=== PATIENT | female | born 1960 | race Caucasian/White ===

== ENCOUNTER 2017-12-08 13:28 | Inpatient (IN) ==
--- NOTE | 2017-12-08 15:07 | Emergency Department Note ---
Disposition Clinical Impression: Venous thrombosis Disposition: Admitted As Inpatient Condition: Fair General Adult HPI - General Chief complaint: ED Back Pain/Injury Stated complaint: Lower Back Pain x 4 days Time Seen by Provider: 12/08/17 14:18 Source: EMS - History of Present Illness Pain Scale: 10 - Related Data Home Medications Medication Instructions Recorded Confirmed Furosemide [Lasix] 40 mg PO DAILY 06/14/15 12/08/17 Insulin Glargine [Lantus] 40 unit SQ BID 06/03/16 12/08/17 Rivaroxaban [Xarelto] 20 mg PO DAILY 06/03/16 12/08/17 Ibuprofen [Ibuprofen] 800 mg PO BID 12/08/17 12/08/17 Lisinopril [Zestril] 20 mg PO DAILY 12/08/17 12/08/17 Previous Rx's Medication Instructions Recorded Albuterol Sulfate [Albuterol 2 puff IH Q6HR PRN #1 hfa.aer.ad 04/09/17 Inhaler] Tramadol HCl [Ultram] 50 mg PO QID PRN 4 Days #10 tab 12/05/17 Allergies Allergy/AdvReac Type Severity Reaction Status Date / Time No Known Allergies Allergy Verified 12/08/17 13:44 Past Medical History - Past Medical History Medical history: Reports: arthritis, asthma, COPD, CVA, DVT, diabetes, GERD, hyperlipidemia, hypertension, osteoporosis, other Surgical history: Reports: , cholecystectomy, other ([place] filter) Psychiatric history: Reports: anxiety, depression FRAME WIRER history: Reports: no FRAME WIRER history - Social History Smoking Status: Never smoker Smokeless Tobacco Status: No Alcohol use: Reports: none Drug use: Reports: none Physical Exam - General General appearance: alert, in no apparent distress Course Vital Signs Temperature 97.8 F 12/08/17 13:41 Pulse Rate 100 12/08/17 13:41 Respiratory Rate 16 12/08/17 13:41 Blood Pressure 133/79 12/08/17 13:41 O2 Sat by Pulse Oximetry 97 12/08/17 13:41 Temperature 97.8 F 12/08/17 13:41 Pulse Rate 105 12/08/17 18:15 Respiratory Rate 16 12/08/17 18:15 Blood Pressure 135/61 12/08/17 18:15 O2 Sat by Pulse Oximetry 94 12/08/17 18:15 Oxygen Delivery Oxygen Delivery Nasal Cannula Medical Decision Making - Lab Data Result diagrams: 12/08/17 17:25 12/08/17 15:27 Lab Results 12/08/17 12/08/17 12/08/17 Range/Units 15:27 15:27 17:25 WBC 11.5 H 11.2 H (4.3-11.1) K/mcL RBC 3.89 4.03 (3.82-4.97) M/mcL Hgb 11.6 12.1 (11.5-15.4) g/dL Hct 35.8 36.9 (35.3-44.9) % MCV 92.0 91.6 (83.0-100.0) fL MCH 29.8 30.0 (28.0-33.3) pg MCHC 32.4 32.8 (31.6-35.5) g/dL RDW 12.8 12.7 (11.5-14.5) % Plt Count 176 182 (140-400) K/mcL MPV 10.6 10.8 (9.4-12.4) fL Immature Gran % 0.4 (0-4) % Seg Neutrophils % 80.7 % Lymphocytes % 11.6 % Monocytes % 5.5 % Eosinophils % 1.4 % Basophils % 0.4 % Neutrophils # 9.2 H (1.6-8.9) K/mcL Lymphocytes # 1.3 (0.6-4.6) K/mcL Monocytes # 0.6 (0.0-1.3) K/mcL Eosinophils # 0.2 (0.0-0.6) K/mcL Basophils # 0.1 (0.0-0.2) K/mcL PT (9.4-12.1) Seconds INR APTT (26.0-36.0) Seconds Sodium 131 L (136-145) mEq/L Potassium 3.3 L (3.5-5.1) mEq/L Chloride 93 L (98-107) mEq/L Carbon Dioxide 31 H (23-29) mEq/L BUN 20 (6-20) mg/dL Creatinine 0.75 (0.60-1.20) mg/dL Est GFR ( Amer) > 60 (> 60) Est GFR (Non-Af Amer) > 60 (> 60) BUN/Creatinine Ratio 27 H (6-26) Glucose 428 H (70-105) mg/dL Calculated Osmolality 293 (280-300) Calcium 9.2 (8.6-10.3) mg/dL Total Bilirubin 1.1 H (0.3-1.0) mg/dL AST 8 L (13-39) Units/L ALT 10 (7-52) Units/L Alkaline Phosphatase 108 H (34-104) Units/L Serum Total Protein 7.2 (6.4-8.9) g/dL Albumin 3.9 (3.5-5.7) g/dL Globulin 3.3 (2.4-3.5) g/dL Albumin/Globulin Ratio 1.2 (1.1-2.2) 12/08/17 Range/Units 17:25 WBC (4.3-11.1) K/mcL RBC (3.82-4.97) M/mcL Hgb (11.5-15.4) g/dL Hct (35.3-44.9) % MCV (83.0-100.0) fL MCH (28.0-33.3) pg MCHC (31.6-35.5) g/dL RDW (11.5-14.5) % Plt Count (140-400) K/mcL MPV (9.4-12.4) fL Immature Gran % (0-4) % Seg Neutrophils % % Lymphocytes % % Monocytes % % Eosinophils % % Basophils % % Neutrophils # (1.6-8.9) K/mcL Lymphocytes # (0.6-4.6) K/mcL Monocytes # (0.0-1.3) K/mcL Eosinophils # (0.0-0.6) K/mcL Basophils # (0.0-0.2) K/mcL PT 12.2 H (9.4-12.1) Seconds INR 1.1 APTT 28.2 (26.0-36.0) Seconds Sodium (136-145) mEq/L Potassium (3.5-5.1) mEq/L Chloride (98-107) mEq/L Carbon Dioxide (23-29) mEq/L BUN (6-20) mg/dL Creatinine (0.60-1.20) mg/dL Est GFR ( Amer) (> 60) Est GFR (Non-Af Amer) (> 60) BUN/Creatinine Ratio (6-26) Glucose (70-105) mg/dL Calculated Osmolality (280-300) Calcium (8.6-10.3) mg/dL Total Bilirubin (0.3-1.0) mg/dL AST (13-39) Units/L ALT (7-52) Units/L Alkaline Phosphatase (34-104) Units/L Serum Total Protein (6.4-8.9) g/dL Albumin (3.5-5.7) g/dL Globulin (2.4-3.5) g/dL Albumin/Globulin Ratio (1.1-2.2) Critical Care Time Critical Care Time: Yes Total Critical Care Time: 30 Attestation: The high probability of a clinically significant, sudden or life threatening deterioration of the [] system(s) required my full and direct attention, intervention and personal management. The aggregate critical care time was [] minutes. This time is in addition to time spent performing reported procedures but includes the following: [] Data Review and interpretation [] Patient assessment and monitoring of vital signs [] Documentation [] Medication orders and management Attestation Statement - Attestation Attestation: I examined this patient and my medical decision-making was reviewed with the Resident Physician. I agree with the documented findings, disposition and treatment plan as described except to the extent set forth below. [id number] time provided Patient arrives with asymmetric right lower extremity swelling. She has history of a DVT in the contralateral leg and takes xarelto. She is evaluated in conjunction with the resident physician Dr. Chowdhury
[2017-12-08] MEDS ORDERED: Ketorolac 15 MG/ML VIAL IVP ONE (15:17)
[2017-12-08 15:38] LABS: Basophils # 0.1 K/mcL (0.0-0.2); Basophils % 0.4 %; Eosinophils # 0.2 K/mcL (0.0-0.6); Eosinophils % 1.4 %; Hematocrit 35.8 % (35.3-44.9); Hemoglobin 11.6 g/dL (11.5-15.4); Immature Granulocytes % 0.4 % (0-4); Lymphocytes # 1.3 K/mcL (0.6-4.6); Lymphocytes % 11.6 %; Mean Corpuscular HGB Conc 32.4 g/dL (31.6-35.5); Mean Corpuscular Hemoglobin 29.8 pg (28.0-33.3); Mean Platelet Volume 10.6 fL (9.4-12.4); Monocytes # 0.6 K/mcL (0.0-1.3); Monocytes % 5.5 %; Neutrophils # 9.2 K/mcL (1.6-8.9); Platelet Count 176 K/mcL (140-400); Red Blood Count 3.89 M/mcL (3.82-4.97); Red Cell Distribution Width 12.8 % (11.5-14.5); Segmented Neutrophils % 80.7 %
[2017-12-08 15:47] LABS: Albumin 3.9 g/dL (3.5-5.7); Bilirubin,Total 1.1 mg/dL (0.3-1.0); Calcium 9.2 mg/dL (8.6-10.3); Carbon Dioxide 31 mEq/L (23-29); Chloride 93 mEq/L (98-107); Potassium 3.3 mEq/L (3.5-5.1); Sodium 131 mEq/L (136-145)
--- NOTE | 2017-12-08 15:51 | Emergency Department Note ---
Disposition Clinical Impression: Venous thrombosis, Pain and swelling of right lower extremity Disposition: Admitted As Inpatient Condition: Fair Time of Disposition: 17:47 General Adult HPI - General Chief complaint: ED Back Pain/Injury Stated complaint: Lower Back Pain x 4 days Time Seen by Provider: 12/08/17 14:18 Source: EMS Nursing Notes Reviewed: Yes Vital Signs Reviewed: Yes - History of Present Illness HPI Narrative: 57-year-old female complains of right lower extremity swelling and pain sharp along medial thigh with no extension below the knee 4 days ago. Patient states that the pain is been constant and worsening. She states pain is currently 10/10 and is unable to walk. Patient has a history of DVT in the left lower extremity but denies any anticoagulant use. Patient also states she has a filter in place. Patient denies any new symptoms of shortness of breath. Pain Scale: 10 - Related Data Home Medications Medication Instructions Recorded Confirmed Furosemide [Lasix] 40 mg PO DAILY 06/14/15 12/08/17 Insulin Glargine [Lantus] 40 unit SQ BID 06/03/16 12/08/17 Rivaroxaban [Xarelto] 20 mg PO DAILY 06/03/16 12/08/17 Ibuprofen [Ibuprofen] 800 mg PO BID 12/08/17 12/08/17 Lisinopril [Zestril] 20 mg PO DAILY 12/08/17 12/08/17 Previous Rx's Medication Instructions Recorded Albuterol Sulfate [Albuterol 2 puff IH Q6HR PRN #1 hfa.aer.ad 04/09/17 Inhaler] Tramadol HCl [Ultram] 50 mg PO QID PRN 4 Days #10 tab 12/05/17 Allergies Allergy/AdvReac Type Severity Reaction Status Date / Time No Known Allergies Allergy Verified 12/08/17 13:44 All systems ED: reviewed and negative except as stated. Review of Systems: As Per HPI Constitutional: Denies: fever, chills, weakness Eyes: Denies: vision change ENT ED: Denies: congestion Cardiovascular: Denies: chest pain, palpitations Respiratory: Denies: cough, dyspnea, wheezes Gastrointestinal: Denies: abdominal pain, nausea, vomiting, diarrhea Past Medical History - Past Medical History Attestation: Yes The following information was validated with the patient. Source: patient, nursing notes reviewed Medical history: Reports: arthritis, asthma, COPD, CVA, DVT, diabetes, GERD, hyperlipidemia, hypertension, osteoporosis, other Surgical history: Reports: , cholecystectomy, other ([place] filter) Psychiatric history: Reports: anxiety, depression FINANCIAL COUNSELOR history: Reports: no FINANCIAL COUNSELOR history - Social History Smoking Status: Never smoker Smokeless Tobacco Status: No Alcohol use: Reports: none Drug use: Reports: none Physical Exam Vital Signs Temperature 97.8 F 12/08/17 13:41 Pulse Rate 100 12/08/17 13:41 Respiratory Rate 16 12/08/17 13:41 Blood Pressure 133/79 12/08/17 13:41 O2 Sat by Pulse Oximetry 97 12/08/17 13:41 Temperature 97.8 F 12/08/17 13:41 Pulse Rate 95 12/08/17 16:06 Respiratory Rate 16 12/08/17 16:06 Blood Pressure 139/81 12/08/17 16:06 O2 Sat by Pulse Oximetry 96 12/08/17 16:06 Oxygen Delivery Oxygen Delivery Room Air CONSTITUTIONAL: Alert and oriented X3, well-nourished, well appearing, in no apparent distress HEAD: Normocephalic; atraumatic. EYES: PERRL, no scleral icterus. NOSE: The nose is normal in appearance without rhinorrhea RESP: Normal chest excursion with respiration; breath sounds clear and equal bilaterally; no wheezes, rhonchi, or rales CARD: Regular rhythm, without murmurs, rub or gallop ABD: Non-distended; non-tender, soft,without rigidity, rebound or guarding SKIN: Normal for age and race; warm and dry; no apparent lesions EXTREMITIES: Pulses are 2 plus and equal times 4 extremities, no calf muscle pain. Patient has tenderness to palpation medial right thigh, and associated edema along her entire right lower extremity. - General General appearance: alert, in no apparent distress Course - Reevaluation(s) Reevaluation #1: Venous thrombosis right lower extremity. Heparin orders have been placed her standard dose. Patient's pain currently 8/10 after Toradol. Will add more pain meds fentanyl 50 g IV Time: 17:10 - Consultations Consultation #1: I consulted Dr. Faye vascular surgery and updated him on the patient's current condition and consult was placed Time: 18:16 Vital Signs Temperature 97.8 F 12/08/17 13:41 Pulse Rate 100 12/08/17 13:41 Respiratory Rate 16 12/08/17 13:41 Blood Pressure 133/79 12/08/17 13:41 O2 Sat by Pulse Oximetry 97 12/08/17 13:41 Temperature 98.3 F 12/08/17 20:13 Pulse Rate 99 12/08/17 20:13 Respiratory Rate 15 12/08/17 20:13 Blood Pressure 112/71 12/08/17 20:13 O2 Sat by Pulse Oximetry 100 12/08/17 20:13 Oxygen Delivery Oxygen Delivery Nasal Cannula Medical Decision Making - [facility] Narrative Medical decision making narrative: Patient presents with right lower extremities swelling and pain concerning for DVT with a history of prior DVT in the left lower extremity. Lower extremity Doppler of her right lower extremity taken and resulted with newly formed venous thrombosis with obstruction of multiple vessels in the right lower extremity Reevaluation after additional pain meds: Patient is comfortable and ready for admission. Patient has been started on heparin Dr. Nair the hospitalist accepted patient for admission in stable condition to telemetry bed 1736 hrs. - Medical Records Medical records reviewed: Yes I reviewed the patient's medical records. Patient's records show that she is on Xarelto even though she denies current anticoagulant use. - Lab Data Lab results reviewed: Yes I reviewed the patient's lab results. Result diagrams: 12/08/17 17:25 12/08/17 15:27 Lab Results 12/08/17 12/08/17 12/08/17 Range/Units 15:27 15:27 17:25 WBC 11.5 H 11.2 H (4.3-11.1) K/mcL RBC 3.89 4.03 (3.82-4.97) M/mcL Hgb 11.6 12.1 (11.5-15.4) g/dL Hct 35.8 36.9 (35.3-44.9) % MCV 92.0 91.6 (83.0-100.0) fL MCH 29.8 30.0 (28.0-33.3) pg MCHC 32.4 32.8 (31.6-35.5) g/dL RDW 12.8 12.7 (11.5-14.5) % Plt Count 176 182 (140-400) K/mcL MPV 10.6 10.8 (9.4-12.4) fL Immature Gran % 0.4 (0-4) % Seg Neutrophils % 80.7 % Lymphocytes % 11.6 % Monocytes % 5.5 % Eosinophils % 1.4 % Basophils % 0.4 % Neutrophils # 9.2 H (1.6-8.9) K/mcL Lymphocytes # 1.3 (0.6-4.6) K/mcL Monocytes # 0.6 (0.0-1.3) K/mcL Eosinophils # 0.2 (0.0-0.6) K/mcL Basophils # 0.1 (0.0-0.2) K/mcL PT (9.4-12.1) Seconds INR APTT (26.0-36.0) Seconds Sodium 131 L (136-145) mEq/L Potassium 3.3 L (3.5-5.1) mEq/L Chloride 93 L (98-107) mEq/L Carbon Dioxide 31 H (23-29) mEq/L BUN 20 (6-20) mg/dL Creatinine 0.75 (0.60-1.20) mg/dL Est GFR ( Amer) > 60 (> 60) Est GFR (Non-Af Amer) > 60 (> 60) BUN/Creatinine Ratio 27 H (6-26) Glucose 428 H (70-105) mg/dL Calculated Osmolality 293 (280-300) Calcium 9.2 (8.6-10.3) mg/dL Total Bilirubin 1.1 H (0.3-1.0) mg/dL AST 8 L (13-39) Units/L ALT 10 (7-52) Units/L Alkaline Phosphatase 108 H (34-104) Units/L Serum Total Protein 7.2 (6.4-8.9) g/dL Albumin 3.9 (3.5-5.7) g/dL Globulin 3.3 (2.4-3.5) g/dL Albumin/Globulin Ratio 1.2 (1.1-2.2) 12/08/17 Range/Units 17:25 WBC (4.3-11.1) K/mcL RBC (3.82-4.97) M/mcL Hgb (11.5-15.4) g/dL Hct (35.3-44.9) % MCV (83.0-100.0) fL MCH (28.0-33.3) pg MCHC (31.6-35.5) g/dL RDW (11.5-14.5) % Plt Count (140-400) K/mcL MPV (9.4-12.4) fL Immature Gran % (0-4) % Seg Neutrophils % % Lymphocytes % % Monocytes % % Eosinophils % % Basophils % % Neutrophils # (1.6-8.9) K/mcL Lymphocytes # (0.6-4.6) K/mcL Monocytes # (0.0-1.3) K/mcL Eosinophils # (0.0-0.6) K/mcL Basophils # (0.0-0.2) K/mcL PT 12.2 H (9.4-12.1) Seconds INR 1.1 APTT 28.2 (26.0-36.0) Seconds Sodium (136-145) mEq/L Potassium (3.5-5.1) mEq/L Chloride (98-107) mEq/L Carbon Dioxide (23-29) mEq/L BUN (6-20) mg/dL Creatinine (0.60-1.20) mg/dL Est GFR ( Amer) (> 60) Est GFR (Non-Af Amer) (> 60) BUN/Creatinine Ratio (6-26) Glucose (70-105) mg/dL Calculated Osmolality (280-300) Calcium (8.6-10.3) mg/dL Total Bilirubin (0.3-1.0) mg/dL AST (13-39) Units/L ALT (7-52) Units/L Alkaline Phosphatase (34-104) Units/L Serum Total Protein (6.4-8.9) g/dL Albumin (3.5-5.7) g/dL Globulin (2.4-3.5) g/dL Albumin/Globulin Ratio (1.1-2.2) - Radiology Data Radiology results reviewed: Yes I reviewed the patient's radiology results. Abdomen/Pelvis CT 12/08/17 15:16 IMPRESSION: 1. Mild haziness of the pericaval retroperitoneal fat below the level of an IVC filter and along the iliac vessels, which is a nonspecific finding. However, given subcutaneous edema in the proximal anterior right thigh, there is concern for venous thrombosis. Assessment of venous luminal patency is suboptimal on this study due to the phase of contrast. Additional evaluation venous Doppler is recommended and should attempt to include the iliac veins. 2. No other acute process seen in the abdomen or pelvis. Chronic incidental findings described above. D/ / Justina Narayan / Justina Narayan Interpreting Provider: Justina Narayan mpressions: Acute deep venous thrombosis is present in the right distal iliac through tibial veins. Acute superficial venous thrombosis is present in the right greater and lesser saphenous veins. Acute deep venous thrombosis is present in the left common femoral vein. Acute superficial venous thrombosis is present in the left greater saphenous vein. Recommendations: Test completed on 12/08/2017 at 3:35:00 pm. Critical findings reported to Dr Pena in person at 3:36:00 pm on 12/08/2017 by Noemi Mary, ANNAMARIE, RVT. Findings Venous Duplex Results: Right: The right distal iliac demonstrates an incompressible vein. Flow was absent and it did not augment. The right common femoral demonstrates an incompressible vein. Flow was absent and it did not augment. The right superficial femoral demonstrates an incompressible vein. Flow was absent and it did not augment. The right popliteal demonstrates an incompressible vein. Flow was absent and it did not augment. The right posterior tibial demonstrates an incompressible vein. Flow was absent and it did not augment. The right peroneal demonstrates an incompressible vein. Flow was absent and it did not augment. The right great saphenous demonstrates an incompressible vein. Flow was absent and it did not augment. The right lesser saphenous demonstrates an incompressible vein. Flow was absent and it did not augment. Left: The left common femoral demonstrates an incompressible vein. Flow was absent and it did not augment. The left great saphenous demonstrates an incompressible vein. Flow was absent and it did not augment.
[2017-12-08 15:53] LABS: Alanine Aminotransferase 10 Units/L (7-52); Albumin/Globulin Ratio 1.2 (1.1-2.2); Alkaline Phosphatase 108 Units/L (34-104); Aspartate Amino Transferase 8 Units/L (13-39); BUN/Creatinine Ratio 27 (6-26); Blood Urea Nitrogen 20 mg/dL (6-20); Globulin 3.3 g/dL (2.4-3.5); Glucose 428 mg/dL (70-105); Osmolality,Calculated 293 (280-300); Total Protein 7.2 g/dL (6.4-8.9); eGFR For African Americans > 60 (> 60); eGFR For Non-African Americans > 60 (> 60)
[2017-12-08] MEDS ORDERED: *HR* Heparin 5,000 UNIT/ML VIAL IVP PRN (17:05)
[2017-12-08] MEDS ORDERED: *HR* Heparin 5,000 UNIT/ML VIAL IVP ONE (17:05)
[2017-12-08] MEDS ORDERED: *HR* FentaNYL (PF) 100 MCG/2 ML VIAL IVP ONE (17:11)
[2017-12-08 17:39] LABS: Hematocrit 36.9 % (35.3-44.9); Hemoglobin 12.1 g/dL (11.5-15.4); Mean Corpuscular HGB Conc 32.8 g/dL (31.6-35.5); Mean Corpuscular Volume 91.6 fL (83.0-100.0); Mean Platelet Volume 10.8 fL (9.4-12.4); Platelet Count 182 K/mcL (140-400); Red Blood Count 4.03 M/mcL (3.82-4.97); Red Cell Distribution Width 12.7 % (11.5-14.5)
[2017-12-08 17:40] LABS: INR 1.1; Prothrombin Time 12.2 Seconds (9.4-12.1)
[2017-12-08 17:43] LABS: Activated Partial Thrombo Time 28.2 Seconds (26.0-36.0)
[2017-12-08] MEDS: Heparin 25,000 UNIT/500 ML D5W 25,000 UNIT/500 ML BAG IVC SCH (18:02)
[2017-12-08] MEDS ORDERED: Naloxone 0.4 MG/ML INJ IVP PRN (19:40)
[2017-12-08] MEDS ORDERED: Dextrose Gel 15 GM/37.5 ML TUBE PO PRN ×2 (20:11)
[2017-12-08] MEDS ORDERED: *HR* Dextrose 50 % in Water (Syg) 50 ML SYRINGE IVP PRN (20:11)
[2017-12-08] MEDS ORDERED: D5% in Water 1,000 ML IVC PRN (20:11)
[2017-12-08] MEDS: Ibuprofen 800 MG TABLET PO SCH (20:41)
[2017-12-08] MEDS: Insulin DETEMIR 100 UNIT/ML X5UNITS SQ SCH (20:42)
[2017-12-08] MEDS: Insulin LISPRO 300 UNITS/3 ML VIAL SQ SCH (20:42)
--- NOTE | 2017-12-08 22:23 | Internal Med History&Physical ---
Addendum entered and electronically signed by Lukas Washington CNP 00:27: Patient encounter was 12/08/17. Original Note: <Lukas Washington - Last Filed: 12/09/17 00:26> Date of Encounter: 12/09/17 Time of Encounter: 18:00 Assessment and Plan (1) Pain and swelling of right lower extremity Current visit: Yes Status: Acute Pt. presents with increasing pain and edema of the RLE over the past several days, worsening today. Hx of DVT in [facility] in 1989 following of her son. Denies current anticoagulation. Reports difficulty/instability w/ambulation. IVC filter in place. CT of the abdomen/pelvis today shows subcutaneous edema in the proximal anterior right thigh with concern for venous thrombosis. Assessment of venous luminal patency is suboptimal on this study due to phase of contrast. Venous Dopplers show acute venous thrombosis is present in the right distal iliac through tibial veins. Acute superficial venous thrombosis is present in the right greater and lesser saphenous veins. Acute deep venous thrombosis is present in the left common femoral vein. Acute superficial venous thrombosis is present in the left greater saphenous vein. Pt. placed in heparin drip. Vascular surgery consult ordered in ED and I appreciate the consult. Falls/safety precautions. Monitor pt. for signs of bleeding. Pt. discussed w/Dr. Sharp who is in agreement w/plan of care. Pt. is high risk for further morbidity d/t DVTs and not currently being anticoagulated, current sx, hx, and risk factors. Inpatient. (2) Leg weakness, bilateral Current visit: Yes Status: Acute Acute on chronic bilateral leg weakness w/current DVT sx. Falls/safety precautions, up with assist, and bed rest w/bedside commode w/assist only. Consider PT/OT consults post-Vascular surgery consult and recommendations. (3) Hx of deep venous thrombosis Current visit: Yes Status: Chronic Hx of DVT in [facility] in 1989. Pt. reports she was placed on Xarelto for a time and taken off. States she does not take anticoagulation currently. (4) Diabetes Current visit: Yes Status: Chronic Hx of chronic diabetes controlled with insulin. Continue pts. insulin and add low-dose correction insulin sliding scale. BG checks ACHS. A1c in a.m. labs. Qualifiers: Diabetes mellitus type: type 2 Diabetes mellitus complication status: with unspecified complications Diabetes mellitus residential insulin use: with residential use Qualified Code(s): E11.8 - Type 2 diabetes mellitus with unspecified complications; Z79.4 - senior living (current) use of insulin; Z79.4 - senior living ( current) use of insulin; Z79.4 - senior living (current) use of insulin; Z79.4 - senior living (current) use of insulin (5) HLD (hyperlipidemia) Current visit: Yes Status: Chronic Hx of chronic HLD. Lipid panel in a.m. labs. Pt. is not currently taking statin. Consider adding Lipitor to pts. medications if warranted based on lipid panel results. Qualifiers: Hyperlipidemia type: pure hypercholesterolemia Qualified Code(s): E78.00 - Pure hypercholesterolemia, unspecified; E78.0 - Pure hypercholesterolemia (6) HTN (hypertension) Current visit: Yes Status: Chronic Hx of chronic HTN. Monitor pt. and VS. Continue pts. Lisinopril. Qualifiers: Hypertension type: essential hypertension Qualified Code(s): I10 - Essential (primary) hypertension (7) DVT prophylaxis Current visit: Yes Status: Acute Patient placed on heparin drip d/t DVT in RLE. Monitor pt. for signs of bleeding. Internal Medicine - H&P: HPI Chief complaint: Pain in RLE Admitted From: Emergency Dept Plans for Post Hospital Care: Home History of present illness: Ms. Emerson is a 57 year old female with medical history of arthritis, asthma, COPD, CVA in 2002, DVT in left leg in 1989, diabetes with insulin control, GERD , HLD, HTN, and osteoporosis presents from the ED with chief complaint of pain and swelling in her right lower extremity that began on Friday and worsened this morning. Patient reports chronic swelling in lower extremity when she has clot. Reports difficulty w/ambulation and pain in RLE. Denies current anticoagulation. Pt. denies SOB or dyspnea, recent illness, fever, chills, nausea, vomiting, chest pain, palpitations, headache, changes in vision, cough, chest congestion, abdominal pain, diarrhea, constipation, dizziness, lightheadedness, pre-syncope, or syncope. Past Med Surg Social Fam HX - Past Medical History Source: patient, old records reviewed Medical history: arthritis, asthma, COPD, CVA (2002), DVT (1989), diabetes, GERD , hyperlipidemia, hypertension, osteoporosis, other Psychiatric history: anxiety, depression - Past Surgical History Surgical History: , cholecystectomy, other ([place] filter) - Social History Smoking Status: Never smoker Smokeless Tobacco Status: No Alcohol use: none Drug use: none Current living situation: Home Activity Level: Independent ambulation, Uses cane/walker Recent Out of Country Travel Within the Last 8 Weeks: No Exposure or Possible Exposure to Illness During Travel: No - Family History Father History Unknown: Yes Race: Family Member Ethnicity: Non- Living Status: Mother Race: Family Member Ethnicity: Non- Living Status: Age at : 68 Cause of : Colon cancer Hx Family Cardiac Disorders: Yes (CAD, HD) Hx Family Cancer: Yes (Colon) Hx Family Endocrine Disorder: Yes (DM) Hx Family Musculoskeletal Disorders: Yes (Arthritis) Mother Brother Race: Family Member Ethnicity: Non- Living Status: Age at : 57 Cause of : [place] Hx Family Cardiac Disorders: Yes (HD, CAD, [place]) Sister Race: Family Member Ethnicity: Non- Living Status: Age at : 42 Cause of : Drug overdose Hx Family Psychosocial Disorders: Yes (Drug addiction) Internal Medicine - H&P: Meds Furosemide [Lasix] 40 mg PO DAILY 06/14/15 [History] Insulin Glargine [Lantus] 40 unit SQ BID 06/03/16 [History] Rivaroxaban [Xarelto] 20 mg PO DAILY 06/03/16 [History] Albuterol Sulfate [Albuterol Inhaler] 2 puff IH Q6HR PRN #1 hfa.aer.ad 04/09/17 [Rx] Tramadol HCl [Ultram] 50 mg PO QID PRN 4 Days #10 tab 12/05/17 [Rx] Ibuprofen [Ibuprofen] 800 mg PO BID 12/08/17 [History] Lisinopril [Zestril] 20 mg PO DAILY 12/08/17 [History] Rivaroxaban [Xarelto] 20 mg PO DAILY #30 tablet 12/09/17 [Rx] 3 Allergy/AdvReac Type Severity Reaction Status Date / Time No Known Allergies Allergy Verified 12/08/17 13:44 All Systems PM: A 10-system review of systems was performed and is negative for pertinent findings except as documented above in the HPI. - Constitutional Constitutional: as per HPI, no chills, no fever(s), no night sweats - EENT Eyes: no change in vision, no discharge, no pain, no photophobia Ears: no ear discharge, no ear pain, no tinnitus Nose, mouth and throat: no dysphagia, no nasal discharge, no neck pain, no sore throat - Breasts Breasts: as per HPI - Cardiovascular Cardiovascular ROS IM: as per HPI (Bilateral LEs), edema, no chest pain, no diaphoresis, no dyspnea, no lightheadedness, no palpitations, no syncope - Respiratory Respiratory: no cough, no dyspnea, no wheezing, no excessive phlegm production - Gastrointestinal Gastrointestinal: no abdominal pain, no diarrhea, no hematemesis, no hematochezia, no melena, no nausea, no vomiting - Genitourinary Genitourinary: no change in urinary stream, no dysuria, no flank pain, no hematuria Menstruation: as per HPI - Musculoskeletal Musculoskeletal ROS IM: as per HPI, back pain, other (Pain in RLE), no numbness , no tingling - Integumentary Integumentary IM: no rash, no unusual bruising - Neurological Neurological ROS: no confusion, no convulsions, no focal weakness, no numbness, no tingling, no tremor(s) - Psychiatric Psychiatric: as per HPI, anxiety, depression - Endocrine Endocrine IM: as per HPI - Hematologic/Lymphatic Hematologic/Lymphatic: no easy bruising - Allergic/Immunologic Allergic/Immunologic: as per HPI - Constitutional Vitals: Temp Pulse Resp BP Pulse Ox 98.3 F 99 15 112/71 100 12/08/17 20:13 12/08/17 20:13 12/08/17 20:13 12/08/17 20:13 12/08/17 20:40 General appearance: Present: cooperative, A&O X 3, pleasant, no acute distress, obese, answers questions appropriately - Head Head exam: Present: atraumatic, normocephalic - Eye Eye exam: Present: PERRL, conjuntiva pink, sclera anicteric Pupils: Present: PERRL - ENT ENT exam: Present: normal exam - Neck Neck exam general surgery: Present: normal inspection, supple, trachea midline. Absent: lymphadenopathy - Respiratory Respiratory exam: Present: CTAB. Absent: accessory muscle use, rales, rhonchi, wheezes - Cardiovascular Cardiovascular exam: Present: RRR, +S1, +S2. Absent: diastolic murmur, gallop, rubs, systolic murmur - GI/Abdominal GI/Abdominal exam: Present: normal bowel sounds, soft, no peritoneal signs. Absent: distended, tenderness - Rectal Rectal exam: Present: deferred - Additional comments: exam deferred. - Extremities Exam Extremities exam: Present: pedal edema (Bilateral LEs), warm, radial pulses palpable and symmetrical. Absent: calf tenderness, cyanotic - Back Exam Back exam: Present: normal inspection - Neurological Exam Neurological exam: Present: CN II-XII intact, oriented X3, no focal deficits, speech deficit (Residual from 2003 CVA). Absent: pronater drift, facial droop - Psychiatric Psychiatric exam: Present: normal affect, normal mood - Skin Skin exam: Present: dry, intact Internal Med - H&P Results - Labs CBC & Chem 7: 12/08/17 17:25 12/08/17 15:27 - Diagnostic Studies CT scan - abdomen Additional comments: Impressions Abdomen/Pelvis CT 12/08/17 15:16 IMPRESSION: 1. Mild haziness of the pericaval retroperitoneal fat below the level of an IVC filter and along the iliac vessels, which is a nonspecific finding. However, given subcutaneous edema in the proximal anterior right thigh, there is concern for venous thrombosis. Assessment of venous luminal patency is suboptimal on this study due to the phase of contrast. Additional evaluation with venous Doppler is recommended and should attempt to include the iliac veins. 2. No other acute process seen in the abdomen or pelvis. Chronic incidental findings described above. D/ / 12/08/2017 17:08:25 Justina Narayan / randi Interpreting Provider: Justina Narayan <Oli Sharp - Last Filed: 12/09/17 23:47> Date of Encounter: 12/08/17 Internal Medicine - H&P: HPI History of present illness: Ms. Emerson is a 57 year old female All Systems PM: A 10-system review of systems was performed and is negative for pertinent findings except as documented above in the HPI. - Constitutional Vitals: Temp Pulse Resp BP Pulse Ox 97.5 F L 105 18 102/64 94 12/09/17 23:35 12/09/17 23:35 12/09/17 23:35 12/09/17 23:35 12/09/17 23:35 Internal Med - H&P Results - Labs CBC & Chem 7: 12/09/17 00:30 12/09/17 00:30 Labs: Short CBC 12/09/17 Range/Units 00:30 WBC 12.8 H (4.3-11.1) K/mcL Hgb 10.9 L (11.5-15.4) g/dL Hct 32.3 L (35.3-44.9) % Plt Count 178 (140-400) K/mcL Neutrophils # 8.9 (1.6-8.9) K/mcL BMP 12/09/17 00:30 Sodium 132 L Potassium 3.0 L Chloride 96 L Carbon Dioxide 28 BUN 26 H Creatinine 0.84 Glucose 283 H Calcium 8.8 Liver Function 12/09/17 Range/Units 00:30 Total Bilirubin 0.7 (0.3-1.0) mg/dL AST 7 L (13-39) Units/L ALT 9 (7-52) Units/L Alkaline Phosphatase 93 (34-104) Units/L Albumin 3.5 (3.5-5.7) g/dL - Attending Attestation I have personally performed a face to face evaluation on this patient. I have reviewed and agree with the care plan provided by ALECIA Washington . History and Exam by me shows: Ms. Emerson is a 57 year old female with medical history of arthritis, asthma, COPD, CVA in 2002, DVT in left leg in 1989, s/p IVC filter, diabetes with insulin control, GERD, HLD, HTN, and osteoporosis presented to ED with chief complaint of pain and swelling in her right lower extremity that began on Friday and worsened this morning. Reports difficulty w/ambulation and pain in RLE. She denied any CP / SOB Gen: A,A, O x 3 Chest: Diminished BS b/l , no crackles Ext; Inc swelling and tenderness in Rt leg a/p 1. Acute Rt leg DVT 2. Chronic Left lge DVT 3. s/p IVC filter Pt reported she is not taking any anticoag - she is not sure why, or who took her off the medication will continue her on Heparin gtt for will contact her PCP in AM Vascular surgery consulted for further eval
[2017-12-09 00:41] LABS: Basophils # 0.1 K/mcL (0.0-0.2); Basophils % 0.5 %; Eosinophils # 0.2 K/mcL (0.0-0.6); Eosinophils % 1.9 %; Hematocrit 32.3 % (35.3-44.9); Hemoglobin 10.9 g/dL (11.5-15.4); Immature Granulocytes % 0.3 % (0-4); Lymphocytes # 2.8 K/mcL (0.6-4.6); Lymphocytes % 21.7 %; Mean Corpuscular HGB Conc 33.7 g/dL (31.6-35.5); Mean Corpuscular Hemoglobin 29.9 pg (28.0-33.3); Mean Corpuscular Volume 88.5 fL (83.0-100.0); Mean Platelet Volume 10.4 fL (9.4-12.4); Monocytes # 0.9 K/mcL (0.0-1.3); Monocytes % 6.6 %; Neutrophils # 8.9 K/mcL (1.6-8.9); Platelet Count 178 K/mcL (140-400); Red Blood Count 3.65 M/mcL (3.82-4.97); Red Cell Distribution Width 12.9 % (11.5-14.5)
[2017-12-09 00:55] LABS: Hemoglobin A1C 10.8 %
[2017-12-09 01:06] LABS: Alanine Aminotransferase 9 Units/L (7-52); Albumin 3.5 g/dL (3.5-5.7); Albumin/Globulin Ratio 1.2 (1.1-2.2); Alkaline Phosphatase 93 Units/L (34-104); Aspartate Amino Transferase 7 Units/L (13-39); BUN/Creatinine Ratio 31 (6-26); Bilirubin,Total 0.7 mg/dL (0.3-1.0); Blood Urea Nitrogen 26 mg/dL (6-20); Calcium 8.8 mg/dL (8.6-10.3); Carbon Dioxide 28 mEq/L (23-29); Chloride 96 mEq/L (98-107); Chol/HDL Ratio 3.8 (0-4.9); Cholesterol 150 mg/dL (< 200); Glucose 283 mg/dL (70-105); HDL Cholesterol 40 mg/dL (40-59); LDL Cholesterol,Calculated 87 mg/dL (0-99); Magnesium 1.8 mg/dL (1.6-2.6); Osmolality,Calculated 289 (280-300); Sodium 132 mEq/L (136-145); Total Protein 6.5 g/dL (6.4-8.9); Triglycerides 116 mg/dL (< 150); eGFR For African Americans > 60 (> 60); eGFR For Non-African Americans > 60 (> 60)
[2017-12-09] MEDS: traMADol 50 MG TABLET PO PRN (03:00)
--- NOTE | 2017-12-09 06:44 | Vascular/Endovasc Consult Note ---
Date of Encounter: 12/09/17 Time of Encounter: 06:25 Assessment and Plan (1) Acute deep vein thrombosis of right lower extremity Current Visit: Yes Status: Acute The pathophysiology and natural history of deep vein thrombosis was discussed with the patient and all questions were answered. The patient has acute deep venous thrombosis. She has a history of deep venous thrombosis and pulmonary embolus dating back to 1989. She had an inferior vena cava filter placed in 2011. The patient was previously on Coumadin, but was started on Xarelto in 2016. The patient reports that she has not been taking Xarelto lately and does not remember why she stopped. [facility] she has no signs or symptoms of phlegmasia. Recommend that she continue with intravenous heparin today. Continue with leg elevation. Will reassess for continued improvement. Patient will be transitioned to oral anticoagulation prior to discharge. Qualifiers: Affected thrombotic vein of extremity: femoral Qualified Code(s): I82.411 - Acute embolism and thrombosis of right femoral vein (2) Diabetes Current Visit: Yes Status: Chronic Qualifiers: Diabetes mellitus type: type 2 Diabetes mellitus complication status: with unspecified complications Diabetes mellitus intermediate school teacher insulin use: with intermediate school teacher use Qualified Code(s): E11.8 - Type 2 diabetes mellitus with unspecified complications; Z79.4 - middle or intermediate school principal (current) use of insulin; Z79.4 - middle or intermediate school principal ( current) use of insulin; Z79.4 - prison (current) use of insulin; Z79.4 - middle or intermediate school principal (current) use of insulin (3) HLD (hyperlipidemia) Current Visit: Yes Status: Chronic She was counseled regarding atherosclerotic risk factor reduction. Qualifiers: Hyperlipidemia type: pure hypercholesterolemia Qualified Code(s): E78.00 - Pure hypercholesterolemia, unspecified; E78.0 - Pure hypercholesterolemia (4) HTN (hypertension) Current Visit: Yes Status: Chronic Qualifiers: Hypertension type: essential hypertension Qualified Code(s): I10 - Essential (primary) hypertension - History of Present Illness Consult date: 12/09/17 Requesting physician: Ashwin Chowdhury Consult reason: Deep vein thrombosis Chief complaint: Right leg pain History of present illness: Ms. 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 She present ed to the ER with acute pain, tendereness and edema in the right lower extremity. She was found by duplex to have an extensive right lower extremity DVT. She was admitted and started on intravenous heparin. Vascular surgery was consulted for further evaluation. The patient has has an inferior vena cava filter placement. The patient was on nursing home anticoagulation. Initially she was treated with Coumadin, but was transitioned to Xarelto in 2015. The patient was not on Xarelto at presentation to the ER and was not sure why she wasn't taking it. Today she states that her leg is feeling better since admission. She denies chest pain or shortness of breath. Past Med Surg Social Fam HX - Past Medical History Medical history: arthritis, asthma, COPD, CVA (2002), DVT (1989), diabetes, GERD , hyperlipidemia, hypertension, osteoporosis, other Psychiatric history: anxiety, depression - Past Surgical History Surgical History: , cholecystectomy, other ([place] filter) - Social History Smoking Status: Never smoker Smokeless Tobacco Status: No Alcohol use: none Drug use: none - Family History Father History Unknown: Yes Race: Family Member Ethnicity: Non- Living Status: Mother Race: Family Member Ethnicity: Non- Living Status: Age at : 68 Cause of : Colon cancer Hx Family Cardiac Disorders: Yes (CAD, HD) Hx Family Cancer: Yes (Colon) Hx Family Endocrine Disorder: Yes (DM) Hx Family Musculoskeletal Disorders: Yes (Arthritis) Mother Brother Race: Family Member Ethnicity: Non- Living Status: Age at : 57 Cause of : [place] Hx Family Cardiac Disorders: Yes (HD, CAD, [place]) Sister Race: Family Member Ethnicity: Non- Living Status: Age at : 42 Cause of : Drug overdose Hx Family Psychosocial Disorders: Yes (Drug addiction) Medications and Allergies Furosemide [Lasix] 40 mg PO DAILY 06/14/15 [History] Insulin Glargine [Lantus] 40 unit SQ BID 06/03/16 [History] Rivaroxaban [Xarelto] 20 mg PO DAILY 06/03/16 [History] Albuterol Sulfate [Albuterol Inhaler] 2 puff IH Q6HR PRN #1 hfa.aer.ad 04/09/17 [Rx] Tramadol HCl [Ultram] 50 mg PO QID PRN 4 Days #10 tab 12/05/17 [Rx] Ibuprofen [Ibuprofen] 800 mg PO BID 12/08/17 [History] Lisinopril [Zestril] 20 mg PO DAILY 12/08/17 [History] Rivaroxaban [Xarelto] 20 mg PO DAILY #30 tablet 12/09/17 [Rx] 3 Allergy/AdvReac Type Severity Reaction Status Date / Time No Known Allergies Allergy Verified 12/08/17 13:44 All Systems Review: A 10-system review of systems was performed and is negative for pertinent findings except as documented above in the HPI. - Constitutional Constitutional: no chills, no fever(s) - Cardiovascular Cardiovascular: no chest pain at rest, no chest pain with exertion, no dyspnea at rest, no dyspnea on exertion Exam Vital Signs, Last 4 Hours Temp Pulse Resp BP Pulse Ox 12/09/17 04:51 98.3 F 90 15 123/80 99 General: Present: Conversant, No Apparent Distress HEENT: Present: Atraumatic, Pupils equal Neck: Absent: JVD, Lymphadenopathy, Left Carotid bruit, Right Carotid bruit Cardiac: Present: Reg Rate and Rhythm, Normal S1 and S2 Lungs: Present: Normal Breath Sounds, No Wheeze, Rales, Rhonchi Neuro: Present: Alert and responsive, No focal deficits noted, Motor nerves grossly intact, Sensory nerves grossly intact Abdomen: Present: Soft, Non-tender. Absent: Hepatosplenomegaly, [place] Vascular: Present: Normal capillary refill, Pulse, normal, Edema (2+ right lower extremity edema), Color/Temperature (warm). Absent: Cyanosis Skin: Present: No rashes noted on visualized skin. Absent: Wound/ulcer(s) Musculoskeletal: Absent: No Chest Wall Tenderness Consult Discharge Plan - Plan Referrals: Shelly De Leon CNP [Advanced Practice Nurse] - 12/24/17 12:30 pm Prescriptions: Rivaroxaban [Xarelto] 20 mg PO DAILY #30 tablet
[2017-12-09] MEDS: Ibuprofen 800 MG TABLET PO SCH (08:07)
[2017-12-09] MEDS: Furosemide 40 MG TABLET PO SCH (08:09)
[2017-12-09] MEDS: Insulin LISPRO 300 UNITS/3 ML VIAL SQ SCH ×4 (08:09→19:55)
[2017-12-09] MEDS: Insulin DETEMIR 100 UNIT/ML X5UNITS SQ SCH ×2 (08:10→20:24)
[2017-12-09] MEDS: *HR* Heparin 5,000 UNIT/ML VIAL IVP PRN (08:17)
[2017-12-09] MEDS ORDERED: Lisinopril 20 MG TABLET PO SCH (09:00)
--- NOTE | 2017-12-09 09:31 | Internal Med Progress Note ---
<Megan Powell - Last Filed: 12/09/17 12:56> Date of Encounter: 12/09/17 Time of Encounter: 09:29 - Assessment and plan (1) Acute deep vein thrombosis (DVT) Current Visit: Yes Status: Acute Assessment and plan: Acute bilateral DVT secondary to non compliance with anti-coagulation. She reportedly used to take coumadin but has not taken it in a year. She was to start xarelto but never took it and said she didn't know about it. She has an IVC filter placed 2011 due to DVTs in past. Venous Dopplers show acute venous thrombosis is present in the right distal iliac through tibial veins. Acute superficial venous thrombosis is present in the right greater and lesser saphenous veins. Acute deep venous thrombosis is present in the left common femoral vein. Acute superficial venous thrombosis is present in the left greater saphenous vein. plan: continue heparin drip start coumadin tonight to bridge vascular consulted, recommendations appreciated monitor INR/ PTT monitor for bleeding Qualifiers: Qualified Code(s): I82.403 - Acute embolism and thrombosis of unspecified deep veins of lower extremity, bilateral (2) Hx of deep venous thrombosis Current Visit: Yes Status: Chronic Assessment and plan: History of DVTs with IVC filter in place from 2011 Used to take coumadin but last time she took it was 1 year ago (3) Diabetes Current Visit: Yes Status: Chronic Assessment and plan: Diabetes taking insulin Glucose on admission 496. Now 180 continue levemir 40BID continue low does insulin sliding scale continue Accu checks diabetic diet Qualifiers: Diabetes mellitus type: type 2 Diabetes mellitus complication status: with unspecified complications Diabetes mellitus termite control representative insulin use: with mcc use Qualified Code(s): E11.8 - Type 2 diabetes mellitus with unspecified complications; Z79.4 - custodial (current) use of insulin; Z79.4 - custodial ( current) use of insulin; Z79.4 - termite control representative (current) use of insulin; Z79.4 - custodial (current) use of insulin (4) HLD (hyperlipidemia) Current Visit: Yes Status: Chronic Assessment and plan: Does not have elevated TG or LDL do not need to start statin Qualifiers: Hyperlipidemia type: pure hypercholesterolemia Qualified Code(s): E78.00 - Pure hypercholesterolemia, unspecified; E78.0 - Pure hypercholesterolemia (5) HTN (hypertension) Current Visit: Yes Status: Chronic Assessment and plan: BP stable. Continue home lisinopril Qualifiers: Hypertension type: essential hypertension Qualified Code(s): I10 - Essential (primary) hypertension (6) Hypokalemia Current Visit: Yes Status: Acute Assessment and plan: hypokalemia 3.0 supplemented today continue to monitor (7) DVT prophylaxis Current Visit: Yes Status: Acute Assessment and plan: on heparin - Subjective Interval history: Sitting up in bed after having finished breakfast. She reports that Dr. Faye of vascular surgery had seen her this morning and had informed her of blood clots in her legs. She denies chest pain comes from sprouts, fever, chills. She reports that her legs feel numb. - Constitutional Vitals: Temp Pulse Resp BP Pulse Ox 97.8 F 95 16 142/83 93 12/09/17 07:31 12/09/17 07:31 12/09/17 07:31 12/09/17 07:31 12/09/17 07:31 General appearance: Present: cooperative, A&O X 3, pleasant, no acute distress, obese, answers questions appropriately Exam: Gen.: Vitals noted. No acute distress. AAOx3 HEENT: oropharynx clear, Normocephalic, atraumatic Neck: Supple. No adenopathy. Cardiac: RRR, no murmur, +S1/S2 Pulmonary: CTA bilaterally, no wheezes, rales or rhonchi, equal chest expansion Abdomen: soft, nontender, Bowel sounds noted, no guarding MSK: no joint swelling noted Extremities: +BLE edema non pitting, nontender calf, no cyanosis or clubbing Neuro: A&Ox3, moves all extremities, no focal deficits Psych: Appropriate mood and behavior Internal Medicine: Result - Labs CBC & Chem 7: 12/09/17 00:30 12/09/17 00:30 Labs: Short CBC 12/09/17 Range/Units 00:30 WBC 12.8 H (4.3-11.1) K/mcL Hgb 10.9 L (11.5-15.4) g/dL Hct 32.3 L (35.3-44.9) % Plt Count 178 (140-400) K/mcL Neutrophils # 8.9 (1.6-8.9) K/mcL BMP 12/09/17 00:30 Sodium 132 L Potassium 3.0 L Chloride 96 L Carbon Dioxide 28 BUN 26 H Creatinine 0.84 Glucose 283 H Calcium 8.8 Liver Function 12/09/17 Range/Units 00:30 Total Bilirubin 0.7 (0.3-1.0) mg/dL AST 7 L (13-39) Units/L ALT 9 (7-52) Units/L Alkaline Phosphatase 93 (34-104) Units/L Albumin 3.5 (3.5-5.7) g/dL - ABG Interpretation ABG results: PT/INR, D-dimer PT 12.2 Seconds (9.4-12.1) H 12/08/17 17:25 Consult Discharge Plan - Plan Referrals: Marquita Hernandez [Primary Care Provider] - <Rosalio Aguillon - Last Filed: 12/09/17 14:56> Date of Encounter: 12/09/17 - Constitutional Vitals: Temp Pulse Resp BP Pulse Ox 97.6 F 97 16 97/61 93 12/09/17 10:25 12/09/17 10:25 12/09/17 10:25 12/09/17 10:25 12/09/17 10:25 Internal Medicine: Result - Labs CBC & Chem 7: 12/09/17 00:30 12/09/17 00:30 Labs: Short CBC 12/09/17 Range/Units 00:30 WBC 12.8 H (4.3-11.1) K/mcL Hgb 10.9 L (11.5-15.4) g/dL Hct 32.3 L (35.3-44.9) % Plt Count 178 (140-400) K/mcL Neutrophils # 8.9 (1.6-8.9) K/mcL BMP 12/09/17 00:30 Sodium 132 L Potassium 3.0 L Chloride 96 L Carbon Dioxide 28 BUN 26 H Creatinine 0.84 Glucose 283 H Calcium 8.8 Liver Function 12/09/17 Range/Units 00:30 Total Bilirubin 0.7 (0.3-1.0) mg/dL AST 7 L (13-39) Units/L ALT 9 (7-52) Units/L Alkaline Phosphatase 93 (34-104) Units/L Albumin 3.5 (3.5-5.7) g/dL - ABG Interpretation ABG results: PT/INR, D-dimer PT 12.2 Seconds (9.4-12.1) H 12/08/17 17:25 - Attending Attestation I examined this patient and my medical decision-making was reviewed with the Resident Physician. I agree with the documented findings, disposition and treatment plan as described except to the extent set forth below. Seen and evaluated at the bedside 57 F with uncontrolled DM, COPD, HTN, DVT in the past, now admitted for DVT, not compliant with meds NO new complains Physical exam is unremarkable Labs and Imaging reviewed: Pseudohyponatremia, hypokalemia, A1C 10. Hyperglycemia has improved. Continue heparin, bridge with coumadin, cost xarelto and possible discharge on oral anticoagulation a.m Rest as in resident physician's documentation
[2017-12-09] MEDS: Heparin 25,000 UNIT/500 ML D5W 25,000 UNIT/500 ML BAG IVC SCH (14:31)
[2017-12-09] MEDS ORDERED: Warfarin perPT PO PRN (18:00)
[2017-12-09] MEDS ORDERED: *HR* Warfarin 5 MG TABLET PO SCH (18:00)
[2017-12-09] MEDS ORDERED: *HR* Warfarin 5 MG TABLET PO ONE (19:00)
--- NOTE | 2017-12-09 20:55 | Electrocardiograph Report ---
[address] [address] Test Date: 2017-12-08 Pat Name: Sigrid Emerson Department: 115 Room: 3A14 Gender: F Family Medicine Resident: [id number] : 1960 Requested By: Rosalio Aguillon Order Number: [id number] Reading MD: Yunior Marques MD Measurements Intervals [place] Rate: 92 P: 44 ID: [id number] QRS: 7 QRSD: 89 T: 41 QT: 347 QTc: 397 Interpretive Statements SINUS RHYTHM LOW QRS VOLTAGE IN PRECORDIAL LEADS Electronically Signed On 12-09-2017 20:53:42 EST by Yunior Marques MD
[2017-12-10] MEDS: *HR* Heparin 5,000 UNIT/ML VIAL IVP PRN (03:07)
[2017-12-10 04:38] LABS: Basophils # 0.1 K/mcL (0.0-0.2); Basophils % 0.4 %; Eosinophils # 0.2 K/mcL (0.0-0.6); Eosinophils % 1.5 %; Hematocrit 31.6 % (35.3-44.9); Hemoglobin 10.7 g/dL (11.5-15.4); Immature Granulocytes % 0.6 % (0-4); Lymphocytes # 2.6 K/mcL (0.6-4.6); Mean Corpuscular HGB Conc 33.9 g/dL (31.6-35.5); Mean Corpuscular Hemoglobin 30.5 pg (28.0-33.3); Mean Platelet Volume 10.9 fL (9.4-12.4); Monocytes # 1.4 K/mcL (0.0-1.3); Monocytes % 9.2 %; Platelet Count 215 K/mcL (140-400); Red Blood Count 3.51 M/mcL (3.82-4.97); Red Cell Distribution Width 13.2 % (11.5-14.5); Segmented Neutrophils % 71.3 %
[2017-12-10 04:43] LABS: INR 1.2; Prothrombin Time 13.1 Seconds (9.4-12.1)
[2017-12-10 04:58] LABS: Activated Partial Thrombo Time 189.4 Seconds (26.0-36.0)
[2017-12-10 05:01] LABS: Calcium 8.8 mg/dL (8.6-10.3); Magnesium 1.9 mg/dL (1.6-2.6); Potassium 3.4 mEq/L (3.5-5.1)
[2017-12-10 05:07] LABS: Heparin anti-factor XA UFH 0.99 IU/mL (0.30-0.70)
[2017-12-10] MEDS ORDERED: 0.9 % Sodium Chloride 1,000 ML IVC ONE (08:59)
[2017-12-10] MEDS: Insulin DETEMIR 100 UNIT/ML X5UNITS SQ SCH ×2 (09:10→21:32)
[2017-12-10] MEDS: Insulin LISPRO 300 UNITS/3 ML VIAL SQ SCH ×4 (09:11→21:32)
[2017-12-10] MEDS ORDERED: Magnesium Sulfate 1 GM in 0.9 % Sodium Chloride 50 ML IVPB ONE (09:22)
--- NOTE | 2017-12-10 10:16 | Internal Med Progress Note ---
<Megan Powell - Last Filed: 12/10/17 10:14> Date of Encounter: 12/10/17 Time of Encounter: 09:50 - Assessment and plan (1) Acute deep vein thrombosis (DVT) Current Visit: Yes Status: Acute Assessment and plan: Acute bilateral DVT secondary to non compliance with anti-coagulation. She reportedly used to take coumadin but has not taken it in a year. She was to start xarelto but never took it and said she didn't know about it. She has an IVC filter placed 2011 due to DVTs in past. Venous Dopplers show acute venous thrombosis is present in the right distal iliac through tibial veins. Acute superficial venous thrombosis is present in the right greater and lesser saphenous veins. Acute deep venous thrombosis is present in the left common femoral vein. Acute superficial venous thrombosis is present in the left greater saphenous vein. Vascular recommends continued heparin drip with transition to oral anticoagulation plan: continue heparin drip with bridge to Coumadin vascular consulted, recommendations appreciated monitor INR/ PTT monitor for bleeding Qualifiers: Qualified Code(s): I82.403 - Acute embolism and thrombosis of unspecified deep veins of lower extremity, bilateral (2) Hx of deep venous thrombosis Current Visit: Yes Status: Chronic Assessment and plan: History of DVTs with IVC filter in place from 2011 Used to take coumadin but last time she took it was 1 year ago (3) Tachycardia Current Visit: Yes Status: Acute Assessment and plan: HR 103 BP 95/51 may be due to dehydration. She has IVC filter and is on heparin so unlikely PE stop Lasix, lisinopril, ibuprofen start IV fluids check EKG (4) Hypokalemia Current Visit: Yes Status: Acute Assessment and plan: Improving, 3.4 today supplemented today continue to monitor magnesium checked and was 1.9- supplemented magnesium (5) Diabetes Current Visit: Yes Status: Chronic Assessment and plan: Diabetes taking insulin Glucose on admission 496. glucose stable continue levemir 40BID continue low does insulin sliding scale continue Accu checks diabetic diet Qualifiers: Diabetes mellitus type: type 2 Diabetes mellitus complication status: with unspecified complications Diabetes mellitus tree surgeon insulin use: with usp use Qualified Code(s): E11.8 - Type 2 diabetes mellitus with unspecified complications; Z79.4 - material control specialist (current) use of insulin; Z79.4 - [facility] ( current) use of insulin; Z79.4 - material control specialist (current) use of insulin; Z79.4 - [facility] (current) use of insulin (6) HTN (hypertension) Current Visit: Yes Status: Chronic Assessment and plan: BP stable. Continue home lisinopril Qualifiers: Hypertension type: essential hypertension Qualified Code(s): I10 - Essential (primary) hypertension (7) HLD (hyperlipidemia) Current Visit: Yes Status: Chronic Assessment and plan: Does not have elevated TG or LDL do not need to start statin Qualifiers: Hyperlipidemia type: pure hypercholesterolemia Qualified Code(s): E78.00 - Pure hypercholesterolemia, unspecified; E78.0 - Pure hypercholesterolemia (8) DVT prophylaxis Current Visit: Yes Status: Acute Assessment and plan: on heparin - Subjective Interval history: Sitting up in bed. She reports that her arm is sore due to multiple IV needle sticks in an attempt to start a new IV for IV fluids. She admits to reflux with burning in her throat and chest burning. She would like to change in medication for Gerd. She denies shortness of breath, fever, chills. She reports that her leg numbness has improved. - Constitutional Vitals: Temp Pulse Resp BP Pulse Ox 98.3 F 103 18 95/51 94 12/10/17 07:55 12/10/17 07:55 12/10/17 07:55 12/10/17 07:55 12/10/17 07:55 General appearance: Present: cooperative, A&O X 3, pleasant, no acute distress, obese, answers questions appropriately Exam: Gen.: Vitals noted. No acute distress. AAOx3 HEENT: oropharynx clear, Normocephalic, atraumatic Neck: Supple. No adenopathy. Cardiac: RRR, no murmur, +S1/S2 Pulmonary: CTA bilaterally, no wheezes, rales or rhonchi, equal chest expansion Abdomen: soft, nontender, Bowel sounds noted, no guarding MSK: no joint swelling noted Extremities: + BLE edema, nontender calf, no cyanosis or clubbing Neuro: A&Ox3, moves all extremities, no focal deficits Psych: Appropriate mood and behavior Internal Medicine: Result - Labs CBC & Chem 7: 12/10/17 04:23 12/10/17 04:23 Labs: Short CBC 12/10/17 Range/Units 04:23 WBC 15.4 H (4.3-11.1) K/mcL Hgb 10.7 L (11.5-15.4) g/dL Hct 31.6 L (35.3-44.9) % Plt Count 215 (140-400) K/mcL Neutrophils # 11.0 H (1.6-8.9) K/mcL BMP 12/10/17 04:23 Sodium 132 L Potassium 3.4 L Chloride 96 L Carbon Dioxide 24 BUN 38 H Creatinine 1.34 H Glucose 62 L Calcium 8.8 - ABG Interpretation ABG results: PT/INR, D-dimer PT 13.1 Seconds (9.4-12.1) H 12/10/17 04:23 Consult Discharge Plan - Plan Referrals: Shelly De Leon CNP [Advanced Practice Nurse] - 12/24/17 12:30 pm Prescriptions: Rivaroxaban [Xarelto] 20 mg PO DAILY #30 tablet <Rosalio Aguillon - Last Filed: 12/10/17 15:37> Date of Encounter: 12/10/17 - Assessment and plan (1) KIKE (acute kidney injury) Current Visit: Yes Status: Acute (2) Leukocytosis Current Visit: Yes Status: Acute (3) Acute deep vein thrombosis (DVT) Current Visit: Yes Status: Acute Qualifiers: Qualified Code(s): I82.403 - Acute embolism and thrombosis of unspecified deep veins of lower extremity, bilateral (4) Diabetes Current Visit: Yes Status: Chronic Qualifiers: Diabetes mellitus type: type 2 Diabetes mellitus complication status: with unspecified complications Diabetes mellitus usp insulin use: with tree surgeon use Qualified Code(s): E11.8 - Type 2 diabetes mellitus with unspecified complications; Z79.4 - [facility]FP (current) use of insulin; Z79.4 - [facility] ( current) use of insulin; Z79.4 - material control specialist (current) use of insulin; Z79.4 - [facility] (current) use of insulin (5) HLD (hyperlipidemia) Current Visit: Yes Status: Chronic Qualifiers: Hyperlipidemia type: pure hypercholesterolemia Qualified Code(s): E78.00 - Pure hypercholesterolemia, unspecified; E78.0 - Pure hypercholesterolemia (6) HTN (hypertension) Current Visit: Yes Status: Chronic Qualifiers: Hypertension type: essential hypertension Qualified Code(s): I10 - Essential (primary) hypertension - Constitutional Vitals: Temp Pulse Resp BP Pulse Ox 98.1 F 108 18 106/67 95 12/10/17 11:48 12/10/17 11:48 12/10/17 11:48 12/10/17 11:48 12/10/17 11:48 Internal Medicine: Result - Labs CBC & Chem 7: 12/10/17 04:23 12/10/17 04:23 Labs: Short CBC 12/10/17 Range/Units 04:23 WBC 15.4 H (4.3-11.1) K/mcL Hgb 10.7 L (11.5-15.4) g/dL Hct 31.6 L (35.3-44.9) % Plt Count 215 (140-400) K/mcL Neutrophils # 11.0 H (1.6-8.9) K/mcL BMP 12/10/17 04:23 Sodium 132 L Potassium 3.4 L Chloride 96 L Carbon Dioxide 24 BUN 38 H Creatinine 1.34 H Glucose 62 L Calcium 8.8 - ABG Interpretation ABG results: PT/INR, D-dimer PT 13.1 Seconds (9.4-12.1) H 12/10/17 04:23 - Attending Attestation I examined this patient and my medical decision-making was reviewed with the Resident Physician. I agree with the documented findings, disposition and treatment plan as described except to the extent set forth below. Seen and evaluated at the bedside 57 F with uncontrolled DM, COPD, HTN, DVT in the past, now admitted for acute bilateral DVT She has no new complains this morning Of note, she is noted to be tachycardic and her blood pressure is running low normal, she's afebrile and not hypoxic EKG on admission was sinus Physical exam is unremarkable Labs and Imaging significant for KIKE, Leukocytosis possibly from dehydration. Continue heparin and coumadin, IVF hydration, Hold lisinopril, lasix avoid nephrotoxins Rest as in resident physician's documentation
[2017-12-10] MEDS: traMADol 50 MG TABLET PO PRN (10:34)
[2017-12-10 11:49] LABS: Activated Partial Thrombo Time 110.9 Seconds (26.0-36.0)
[2017-12-10 11:55] LABS: Heparin anti-factor XA UFH 0.56 IU/mL (0.30-0.70)
[2017-12-10] MEDS: Heparin 25,000 UNIT/500 ML D5W 25,000 UNIT/500 ML BAG IVC SCH (13:10)
[2017-12-10] MEDS ORDERED: *HR* Warfarin 5 MG TABLET PO ONE (18:00)
--- NOTE | 2017-12-10 18:13 | Vascular/[facility] Progress Note ---
Date of Encounter: 12/10/17 Time of Encounter: 16:50 - Assessment and plan (1) Acute deep vein thrombosis of right lower extremity Current Visit: Yes Status: Acute She has an acute right lower extremity deep venous thrombosis. 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 She has an inferior vena cava filter as well. Lifelong anticoagulation is recommended. Given her improvement, no indication for mechanical thrombectomy today. Will reassess tomorrow. Qualifiers: Affected thrombotic vein of extremity: femoral Qualified Code(s): I82.411 - Acute embolism and thrombosis of right femoral vein - Subjective Interval history: She reports that she is feeling better today. She reports decreased leg pain and tenderness. She denies chest pain or shortness of breath. - Physical Examination General: Present: Conversant, No Apparent Distress HEENT: Present: Pupils equal Cardiac: Present: Reg Rate and Rhythm Lungs: Present: Normal Breath Sounds, No Wheeze, Rales, Rhonchi Neuro: Present: Alert and responsive, No focal deficits noted, Motor nerves grossly intact Vascular: Present: Normal capillary refill, Pulse, normal, Edema (1+ right lower extremity edema). Absent: Cyanosis Abdomen: Present: Soft, Non-tender Skin: Present: No rashes noted on visualized skin Results 12/11/17 03:43 12/11/17 01:38 Lab Results, Last 24 hours 12/09/17 12/10/17 12/10/17 23:07 04:23 04:23 WBC 15.4 H Hgb 10.7 L Hct 31.6 L Plt Count 215 INR APTT 28.6 D Sodium 132 L Potassium 3.4 L Chloride 96 L Carbon Dioxide 24 BUN 38 H Creatinine 1.34 H Glucose 62 L Calcium 8.8 Magnesium 1.9 12/10/17 12/10/17 12/10/17 04:23 04:23 11:30 WBC Hgb Hct Plt Count INR 1.2 APTT 189.4 H* D 110.9 H* Sodium Potassium Chloride Carbon Dioxide BUN Creatinine Glucose Calcium Magnesium Consult Discharge Plan - Plan Referrals: Shelly De Leon CNP [Advanced Practice Nurse] - 12/24/17 12:30 pm Prescriptions: Rivaroxaban [Xarelto] 20 mg PO DAILY #30 tablet
[2017-12-11 01:19] LABS: Bilirubin,Urine Negative (Negative); Blood,Urine Negative (Negative); Clarity,Urine Cloudy (Clear); Color,Urine Yellow (Yellow); Glucose,Urine (UA) Normal (Normal); Ketones,Urine Negative (Negative); Leukocyte Esterase,Urine Small (Negative); Nitrite,Urine Negative (Negative); PH,Urine 5.5 pH Units (5.0-8.0); Protein,Urine 30 mg/dL (Neg-Trace); Specific Gravity,Urine 1.016 (1.010-1.025); Urobilinogen,Urine Normal (Normal)
[2017-12-11 01:32] LABS: Hyaline Casts,Urine None Seen per lpf (None-Few); Squamous Epithelial Cell,Urine Many per lpf (None-Few)
[2017-12-11 01:39] LABS: Bacteria,Urine Many per hpf (None-Few); RBC,Urine 0-3 per hpf (0-3)
[2017-12-11 01:52] LABS: INR 1.5; Prothrombin Time 15.9 Seconds (9.4-12.1)
[2017-12-11 02:05] LABS: BUN/Creatinine Ratio 38 (6-26); Blood Urea Nitrogen 33 mg/dL (6-20); Calcium 8.7 mg/dL (8.6-10.3); Carbon Dioxide 22 mEq/L (23-29); Chloride 99 mEq/L (98-107); Glucose 139 mg/dL (70-105); Osmolality,Calculated 284 (280-300); Sodium 132 mEq/L (136-145); eGFR For African Americans > 60 (> 60); eGFR For Non-African Americans > 60 (> 60)
[2017-12-11 02:08] LABS: Activated Partial Thrombo Time 139.6 Seconds (26.0-36.0)
[2017-12-11 02:22] LABS: Heparin anti-factor XA UFH 0.75 IU/mL (0.30-0.70)
[2017-12-11 03:51] LABS: Basophils % 0.3 %; Eosinophils # 0.2 K/mcL (0.0-0.6); Eosinophils % 2.2 %; Hematocrit 30.3 % (35.3-44.9); Hemoglobin 9.9 g/dL (11.5-15.4); Immature Granulocytes % 1.3 % (0-4); Immature Platelets 3.9 % (1.1-6.1); Lymphocytes # 0.6 K/mcL (0.6-4.6); Lymphocytes % 6.7 %; Mean Corpuscular HGB Conc 32.7 g/dL (31.6-35.5); Mean Corpuscular Volume 91.8 fL (83.0-100.0); Mean Platelet Volume 10.3 fL (9.4-12.4); Monocytes # 0.9 K/mcL (0.0-1.3); Neutrophils # 7.2 K/mcL (1.6-8.9); Platelet Count 232 K/mcL (140-400); Red Cell Distribution Width 13.2 % (11.5-14.5); Segmented Neutrophils % 79.5 %
[2017-12-11] MEDS: Acetaminophen 325 MG TABLET PO PRN (04:40)
[2017-12-11] MEDS: Insulin LISPRO 300 UNITS/3 ML VIAL SQ SCH ×4 (08:04→22:49)
[2017-12-11] MEDS: Insulin DETEMIR 100 UNIT/ML X5UNITS SQ SCH ×2 (09:24→22:49)
--- NOTE | 2017-12-11 10:36 | Internal Med Progress Note ---
<Megan Powell - Last Filed: 12/11/17 14:54> Date of Encounter: 12/11/17 Time of Encounter: 10:34 - Assessment and plan (1) Acute deep vein thrombosis (DVT) Current Visit: Yes Status: Acute Assessment and plan: Acute bilateral DVT secondary to non compliance with anti-coagulation. She reportedly used to take coumadin but has not taken it in a year. She was to start xarelto but never took it and said she didn't know about it. She has an IVC filter placed 2011 due to DVTs in past. Venous Dopplers show acute venous thrombosis is present in the right distal iliac through tibial veins. Acute superficial venous thrombosis is present in the right greater and lesser saphenous veins. Acute deep venous thrombosis is present in the left common femoral vein. Acute superficial venous thrombosis is present in the left greater saphenous vein. Vascular recommends continued heparin drip with transition to oral anticoagulation INR 1.5 plan: continue heparin drip with bridge to Coumadin vascular consulted, recommendations appreciated monitor INR/ PTT monitor for bleeding Qualifiers: Qualified Code(s): I82.403 - Acute embolism and thrombosis of unspecified deep veins of lower extremity, bilateral (2) Pulmonary nodule Current Visit: Yes Status: Acute Assessment and plan: CTA demonstrated bilateral hilar lymphadenopathy with widely scattered bilateral pulmonary nodules concerning for metastatic disease. No PE. Patient denies history of cancer, smoking. She reports that the pulmonary nodules are new information to her. She is not had a colonoscopy. Her mother had colon cancer diagnosed in her 60s. 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 Last time she took Coumadin was 1 year ago (4) Hypokalemia Current Visit: Yes Status: Acute Assessment and plan: Improving, 4 today continue to monitor (5) Diabetes Current Visit: Yes Status: Chronic Assessment and plan: Diabetes taking insulin Glucose on admission 496. 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 Continue home lisinopril Qualifiers: Hypertension type: essential hypertension Qualified Code(s): I10 - Essential (primary) hypertension (7) HLD (hyperlipidemia) Current Visit: Yes Status: Chronic Assessment and plan: Does not have elevated TG or LDL do not need to start statin Qualifiers: Hyperlipidemia type: pure hypercholesterolemia Qualified Code(s): E78.00 - Pure hypercholesterolemia, unspecified; E78.0 - Pure hypercholesterolemia (8) DVT prophylaxis Current Visit: Yes Status: Acute Assessment and plan: on heparin - Subjective Interval history: Sitting up in bed comfortably. She reports that she had her CTA already. She requested a hot blanket. She denied chest pain, shortness of breath, abdominal pain, leg pain. She reported that she did have chills over the evening. - Constitutional Vitals: Temp Pulse Resp BP Pulse Ox 98.2 F 109 17 110/58 95 12/11/17 07:09 12/11/17 07:09 12/11/17 07:09 12/11/17 07:09 12/11/17 07:09 General appearance: Present: cooperative, A&O X 3, pleasant, no acute distress, obese, answers questions appropriately Exam: Gen.: Vitals noted. No acute distress. AAOx3 HEENT: oropharynx clear, Normocephalic, atraumatic Neck: Supple. No adenopathy. Cardiac: RRR, no murmur, +S1/S2 Pulmonary: CTA bilaterally, no wheezes, rales or rhonchi, equal chest expansion Abdomen: soft, nontender, Bowel sounds noted, no guarding MSK: no joint swelling noted Extremities: +BLE edema, nontender calf, no cyanosis or clubbing Neuro: A&Ox3, moves all extremities, no focal deficits Psych: Appropriate mood and behavior Internal Medicine: Result - Labs CBC & Chem 7: 12/11/17 03:43 12/11/17 01:38 Labs: Short CBC 12/11/17 Range/Units 03:43 WBC 9.0 (4.3-11.1) K/mcL Hgb 9.9 L (11.5-15.4) g/dL Hct 30.3 L (35.3-44.9) % Plt Count 232 (140-400) K/mcL Neutrophils # 7.2 (1.6-8.9) K/mcL BMP 12/11/17 01:38 Sodium 132 L Potassium 4.0 Chloride 99 Carbon Dioxide 22 L BUN 33 H Creatinine 0.87 Glucose 139 H Calcium 8.7 Urine 12/11/17 Range/Units 01:04 Urine Color Yellow (Yellow) Urine Clarity Cloudy A (Clear) Urine pH 5.5 (5.0-8.0) pH Units Ur Specific [place] 1.016 (1.010-1.025) Urine Protein 30 H (Neg-Trace) mg/dL Urine Glucose (UA) Normal (Normal) mg/dL - ABG Interpretation ABG results: PT/INR, D-dimer PT 15.9 Seconds (9.4-12.1) H 12/11/17 01:38 - Impressions Impressions Chest X-Ray 12/11/17 00:54 IMPRESSION: Cardiomegaly. No acute process. Multiple bilateral pulmonary nodules as seen from a prior CT dated April 15, 2013. D/ / Olena Goldstein MD / Olena Goldstein MD Interpreting Provider: Olena Goldstein MD Chest CTA 12/11/17 08:30 IMPRESSION: 1. No acute pulmonary artery embolism. 2. Cardiomegaly with mediastinal and bilateral hilar lymphadenopathy. 3. Widely scattered bilateral pulmonary nodules concerning for metastatic disease. D/ / 12/11/2017 09:44:38 Hemal Elam MD / [facility] Interpreting Provider: Hemal Elam MD Consult Discharge Plan - Plan Referrals: Shelly De Leon CNP [Advanced Practice Nurse] - 12/24/17 12:30 pm Prescriptions: Rivaroxaban [Xarelto] 20 mg PO DAILY #30 tablet <Rosalio Aguillon T - Last Filed: 12/11/17 15:58> Date of Encounter: 12/11/17 - Assessment and plan (1) KIKE (acute kidney injury) Current Visit: Yes Status: Acute (2) Leukocytosis Current Visit: Yes Status: Acute (3) Acute deep vein thrombosis (DVT) Current Visit: Yes Status: Acute Qualifiers: Qualified Code(s): I82.403 - Acute embolism and thrombosis of unspecified deep veins of lower extremity, bilateral (4) Diabetes Current Visit: Yes Status: Chronic Qualifiers: Qualified Code(s): E11.8 - Type 2 diabetes mellitus with unspecified complications; Z79.4 - termite treater (current) use of insulin; Z79.4 - termite treater ( current) use of insulin; Z79.4 - care home (current) use of insulin; Z79.4 - termite treater (current) use of insulin (5) HLD (hyperlipidemia) Current Visit: Yes Status: Chronic Qualifiers: Qualified Code(s): E78.00 - Pure hypercholesterolemia, unspecified; E78.0 - Pure hypercholesterolemia (6) HTN (hypertension) Current Visit: Yes Status: Chronic Qualifiers: Qualified Code(s): I10 - Essential (primary) hypertension - Constitutional Vitals: Temp Pulse Resp BP Pulse Ox 98.6 F 102 20 112/72 98 12/11/17 10:55 12/11/17 10:55 12/11/17 10:55 12/11/17 10:55 12/11/17 10:55 Internal Medicine: Result - Labs CBC & Chem 7: 12/11/17 03:43 12/11/17 01:38 Labs: Short CBC 12/11/17 Range/Units 03:43 WBC 9.0 (4.3-11.1) K/mcL Hgb 9.9 L (11.5-15.4) g/dL Hct 30.3 L (35.3-44.9) % Plt Count 232 (140-400) K/mcL Neutrophils # 7.2 (1.6-8.9) K/mcL BMP 12/11/17 01:38 Sodium 132 L Potassium 4.0 Chloride 99 Carbon Dioxide 22 L BUN 33 H Creatinine 0.87 Glucose 139 H Calcium 8.7 Urine 12/11/17 Range/Units 01:04 Urine Color Yellow (Yellow) Urine Clarity Cloudy A (Clear) Urine pH 5.5 (5.0-8.0) pH Units Ur Specific [place] 1.016 (1.010-1.025) Urine Protein 30 H (Neg-Trace) mg/dL Urine Glucose (UA) Normal (Normal) mg/dL - ABG Interpretation ABG results: PT/INR, D-dimer PT 15.9 Seconds (9.4-12.1) H 12/11/17 01:38 - Impressions Impressions Chest X-Ray 12/11/17 00:54 IMPRESSION: Cardiomegaly. No acute process. Multiple bilateral pulmonary nodules as seen from a prior CT dated April 15, 2013. D/ / Olena Goldstein MD / Olena Goldstein MD Interpreting Provider: Olena Goldstein MD Chest CTA 12/11/17 08:30 IMPRESSION: 1. No acute pulmonary artery embolism. 2. Cardiomegaly with stable mediastinal and bilateral hilar lymphadenopathy. 3. Widely scattered stable bilateral pulmonary nodules suggesting benign origin given long-term stability. D/ / 12/11/2017 09:44:38 Hemal Elam MD / [facility] Interpreting Provider: Hemal Elam MD - Attending Attestation I examined this patient and my medical decision-making was reviewed with the Resident Physician. I agree with the documented findings, disposition and treatment plan as described except to the extent set forth below. Seen and evaluated at the bedside 57 F with uncontrolled DM, COPD, HTN, DVT in the past, now admitted for acute bilateral DVT She has no new complains this morning She has been having fever, T max 100.9 tachycardic-sinus by EKG. She has no chest, abdominal , skin or urinary symptoms Her blood and urine cultures were sent by the night team, pending reports, CXR has no infiltrates Physical exam is unremarkable CTA done to r/o PE shows multiple pulmonary nodules, pulm is consulted KIKE has improved, continue IVF Continue heparin and coumadin, continue to Hold lisinopril, lasix avoid nephrotoxins Rest as in resident physician's documentation
[2017-12-11] MEDS: *HR* Heparin 5,000 UNIT/ML VIAL IVP PRN (12:20)
[2017-12-11] MEDS: 0.9 % Sodium Chloride 1,000 ML IVC SCH ×2 (12:27→22:48)
[2017-12-11] MEDS: Heparin 25,000 UNIT/500 ML D5W 25,000 UNIT/500 ML BAG IVC SCH (12:42)
--- NOTE | 2017-12-11 12:53 | Vascular/[facility] Progress Note ---
Date of Encounter: 12/11/17 Time of Encounter: 11:10 - Assessment and plan (1) Acute deep vein thrombosis of right lower extremity Status: Acute She has an acute right lower extremity deep venous thrombosis. 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 She has an inferior vena cava filter. Lifelong anticoagulation is recommended. Given her improvement, there is no indication for mechanical thrombectomy. Will sign off. Qualifiers: Affected thrombotic vein of extremity: unspecified lower extremity distal vein Qualified Code(s): I82.4Z1 - Acute embolism and thrombosis of unspecified deep veins of right distal lower extremity - Subjective Interval history: She reports that she continues to feel better each day. She denies any significant pain or tenderness. She denies chest pain or shortness of breath. Vital Signs, Last 4 Hours Temp Pulse Resp BP Pulse Ox 12/11/17 10:55 98.6 F 102 20 112/72 98 12/11/17 09:25 95 - Physical Examination General: Present: Conversant, No Apparent Distress HEENT: Present: Atraumatic Cardiac: Present: Reg Rate and Rhythm Lungs: Present: Normal Breath Sounds Neuro: Present: Alert and responsive, Motor nerves grossly intact, Sensory nerves grossly intact Vascular: Present: Normal capillary refill, Pulse, normal, Edema (trace), Other (no heamtoma). Absent: Cyanosis Abdomen: Present: Soft, Non-tender Skin: Present: No rashes noted on visualized skin Results 12/14/17 04:59 12/14/17 04:59 12/11/17 03:43 12/11/17 01:38 Lab Results, Last 24 hours 12/10/17 12/11/17 12/11/17 19:21 01:38 01:38 WBC Hgb Hct Plt Count INR 1.5 APTT 37.1 H D 139.6 H* D Sodium 132 L Potassium 4.0 Chloride 99 Carbon Dioxide 22 L BUN 33 H Creatinine 0.87 Glucose 139 H Calcium 8.7 12/11/17 12/11/17 03:43 11:10 WBC 9.0 Hgb 9.9 L Hct 30.3 L Plt Count 232 INR APTT 41.5 H D Sodium Potassium Chloride Carbon Dioxide BUN Creatinine Glucose Calcium Consult Discharge Plan - Plan Referrals: Shelly De Leon CLAIM SERVICE REPRESENTATIVE [Advanced Practice Nurse] - 12/24/17 12:30 pm Prescriptions: Diaper,Brief,Adult, Disposable [Depend Fit-Flex] 1 each MC BID #60 each Rivaroxaban [Xarelto] 20 mg PO DAILY #30 tablet
--- NOTE | 2017-12-11 14:50 | Pulmonology Consult Note ---
Date of Encounter: 12/11/17 Time of Encounter: 14:49 Assessment and Plan (1) Pulmonary nodules Current Visit: Yes Status: Acute In conclusion this is a 57-year-old woman who presented with acute DVT with a history of fiber Kriebel state. CT of the chest was notable for bilateral pulmonary nodules and which are calcified she also has extensive bilateral and hilar and mediastinal lymphadenopathy with evidence of at least partial calcifications and several lymph node. I reviewed her imaging back to 2013 and CTA performed at that time was consistent with images from 2018 and would make the likelihood of pulmonary metastatic disease much less likely furthermore patient recently had CT of the abdomen and pelvis without concern for neoplastic process. Unclear etiology of these findings but likely granulomatosis and sarcoidosis could be considered versus chronic exposure to histoplasmosis among others Risk of interruption of anticoagulation and acute VTE for biopsy clearly outweighs risk of biopsy at this time Recommend pulmonary follow-up in 4-6 weeks at the time of discharge for further evaluation I will defer to management of PTE to primary service but recommend lifelong anticoagulation given recurrent history of VTE I updated the patient at bedside reassured her of her CT findings Pulmonary signout please call with any questions and thank you for this consultation. I spoke directly with the primary hospitalist attending Dr. Aguillon with regards to my assessment and plan (2) Mediastinal lymphadenopathy Current Visit: Yes Status: Acute (3) Hilar lymphadenopathy Current Visit: Yes Status: Acute (4) Acute deep vein thrombosis of right lower extremity Current Visit: Yes Status: Acute Qualifiers: Affected thrombotic vein of extremity: unspecified lower extremity distal vein Qualified Code(s): I82.4Z1 - Acute embolism and thrombosis of unspecified deep veins of right distal lower extremity History of Present Illness Consult date: 12/11/17 Requesting physician: Rosalio Aguillon Reason for consult: abnormal CXR/CT Chief complaint: Shortness of breath History of present illness: This is a 57-year-old woman with past medical history of hypercoaguable state who presented with right lower extremity swelling and tenderness to 10 pain found to have acute DVT 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 She has been treated with infusion of heparin with plan to transition to oral anticoagulation. Pulmonary was consulted because of worsening dyspnea that prompted a CTA of the chest which was notable for bilateral pulmonary nodules and diffuse mediastinal/ hilar adenopathy was concerning for pulmonary metastatic disease. When when I interviewed the patient she seems to be a willing but incomplete historian and although I do not see it mentioned in the medical record I am suspicious of intellectual impairment. She states that she has had shortness of breath and cough maybe for the last 2 years. Denies any fevers chills weight loss a history of tobacco abuse she denies any employment history or exposure to exotic pets including birds. To her knowledge she has never been diagnosed with malignancy in the past Past Med Surg Social Fam HX - Past Medical History Medical history: arthritis, asthma, COPD, CVA (2002), DVT (1989), diabetes, GERD , hyperlipidemia, hypertension, osteoporosis, other Psychiatric history: anxiety, depression - Past Surgical History Surgical History: , cholecystectomy, other ([place] filter) - Social History Smoking Status: Never smoker Smokeless Tobacco Status: No Alcohol use: none Drug use: none - Family History Father History Unknown: Yes Race: Family Member Ethnicity: Non- Living Status: Mother Race: Family Member Ethnicity: Non- Living Status: Age at : 68 Cause of : Colon cancer Hx Family Cardiac Disorders: Yes (CAD, HD) Hx Family Cancer: Yes (Colon) Hx Family Endocrine Disorder: Yes (DM) Hx Family Musculoskeletal Disorders: Yes (Arthritis) Mother Brother Race: Family Member Ethnicity: Non- Living Status: Age at : 57 Cause of : [place] Hx Family Cardiac Disorders: Yes (HD, CAD, [place]) Sister Race: Family Member Ethnicity: Non- Living Status: Age at : 42 Cause of : Drug overdose Hx Family Psychosocial Disorders: Yes (Drug addiction) Medications and Allergies Furosemide [Lasix] 40 mg PO DAILY 06/14/15 [History] Insulin Glargine [Lantus] 40 unit SQ BID 06/03/16 [History] Rivaroxaban [Xarelto] 20 mg PO DAILY 06/03/16 [History] Albuterol Sulfate [Albuterol Inhaler] 2 puff IH Q6HR PRN #1 hfa.aer.[id number] 04/09/17 [Rx] Tramadol HCl [Ultram] 50 mg PO QID PRN 4 Days #10 tab 12/05/17 [Rx] Ibuprofen [Ibuprofen] 800 mg PO BID 12/08/17 [History] Lisinopril [Zestril] 20 mg PO DAILY 12/08/17 [History] Rivaroxaban [Xarelto] 20 mg PO DAILY #30 tablet 12/09/17 [Rx] 3 Allergy/AdvReac Type Severity Reaction Status Date / Time No Known Allergies Allergy Verified 12/08/17 13:44 All Systems: A 10-system review of systems was performed and is negative for pertinent findings except as documented above in the HPI. Physical Examination Vital Signs: Vital Signs, Last 4 Hours Temp Pulse Resp BP Pulse Ox 12/11/17 10:55 98.6 F 102 20 112/72 98 General appearance: lethargic (But arouses easily) Eyes: nonicteric ENT: oropharynx moist Neck: supple Effort: normal Auscultation: bilateral: diminished breath sounds Cardiovascular: regular rate and rhythm Gastrointestinal: normoactive bowel sounds Integumentary: normal Extremities: edema (Right greater than left) Musculoskeletal: no deformities normal mental status, non-focal exam mood appropriate ( Flat Affect ), affect normal Results - Laboratory Findings CBC and BMP: 12/11/17 03:43 12/11/17 01:38 PT/INR, D-dimer PT 15.9 Seconds (9.4-12.1) H 12/11/17 01:38 Abnormal lab findings: Abnormal lab results RBC 3.30 M/mcL (3.82-4.97) L 12/11/17 03:43 Hgb 9.9 g/dL (11.5-15.4) L 12/11/17 03:43 Hct 30.3 % (35.3-44.9) L 12/11/17 03:43 PT 15.9 Seconds (9.4-12.1) H 12/11/17 01:38 APTT 41.5 Seconds (26.0-36.0) H D 12/11/17 11:10 Heparin Anti-Xa, Unfract 0.75 IU/mL (0.30-0.70) H 12/11/17 01:38 Sodium 132 mEq/L (136-145) L 12/11/17 01:38 Carbon Dioxide 22 mEq/L (23-29) L 12/11/17 01:38 BUN 33 mg/dL (6-20) H 12/11/17 01:38 BUN/Creatinine Ratio 38 (6-26) H 12/11/17 01:38 Glucose 139 mg/dL (70-105) H 12/11/17 01:38 POC Glucose 123 (58-89) H 12/10/17 16:12 Hemoglobin A1c 10.8 % (-5.6) H 12/09/17 00:30 AST 7 Units/L (13-39) L 12/09/17 00:30 Urine Clarity Cloudy (Clear) A 12/11/17 01:04 Urine Protein 30 mg/dL (Neg-Trace) H 12/11/17 01:04 Ur Leukocyte Esterase Small (Negative) H 12/11/17 01:04 Urine Microscopic WBC 3-5 per hpf (0-3) H 12/11/17 01:04 Ur Squamous Epith Cells Many per lpf (None-Few) H 12/11/17 01:04 Urine Bacteria Many per hpf (None-Few) H 12/11/17 01:04 - Diagnostic Findings Chest x-ray: report reviewed, image reviewed CT scan - chest: report reviewed, image reviewed - Clinical Findings Intake & Output: Intake & Output 12/10/17 12/11/17 12/11/17 23:59 07:59 15:59 Intake Total 91 / 91 814 / 814 75 / 75 Output Total 50 / 50 600 / 600 200 / 200 Balance 41 / 41 214 / 214 -125 / -125 Weight 92.4 kg Consult Discharge Plan - Plan Referrals: Shelly De Leon TEST WORKER [Advanced Practice Nurse] - 12/24/17 12:30 pm Prescriptions: Rivaroxaban [Xarelto] 20 mg PO DAILY #30 tablet
[2017-12-11] MEDS ORDERED: *HR* Warfarin 5 MG TABLET PO ONE (18:00)
--- NOTE | 2017-12-11 19:40 | Electrocardiograph Report ---
[address] [address] Test Date: 2017-12-10 Pat Name: Sigrid Emerson Department: 115 Room: 3A14 Gender: F Claims Support Specialist: [id number] : 1960 Requested By: Megan Powell Order Number: [id number] Reading MD: Yunior Marques MD Measurements Intervals [place] Rate: 103 P: [place]: 0 QRS: 14 QRSD: 94 T: 37 QT: 336 QTc: 396 Interpretive Statements SINUS TACHYCARDIA LOW QRS VOLTAGE IN PRECORDIAL LEADS Electronically Signed On 12-11-2017 19:39:09 EST by Yunior Marques MD
[2017-12-11 19:47] LABS: Activated Partial Thrombo Time 150.3 Seconds (26.0-36.0)
[2017-12-11 20:06] LABS: Heparin anti-factor XA UFH 0.53 IU/mL (0.30-0.70)
[2017-12-12] MEDS: Acetaminophen 325 MG TABLET PO PRN (05:16)
[2017-12-12 05:32] LABS: Hematocrit 29.8 % (35.3-44.9); Hemoglobin 9.7 g/dL (11.5-15.4); Mean Corpuscular HGB Conc 32.6 g/dL (31.6-35.5); Mean Corpuscular Volume 92.3 fL (83.0-100.0); Platelet Count 238 K/mcL (140-400); Red Blood Count 3.23 M/mcL (3.82-4.97); Red Cell Distribution Width 13.3 % (11.5-14.5)
[2017-12-12 06:18] LABS: BUN/Creatinine Ratio 31 (6-26); Blood Urea Nitrogen 22 mg/dL (6-20); Calcium 7.9 mg/dL (8.6-10.3); Carbon Dioxide 25 mEq/L (23-29); Chloride 102 mEq/L (98-107); Glucose 158 mg/dL (70-105); Osmolality,Calculated 285 (280-300); Potassium 3.9 mEq/L (3.5-5.1); Sodium 134 mEq/L (136-145); eGFR For African Americans > 60 (> 60); eGFR For Non-African Americans > 60 (> 60)
[2017-12-12 06:33] LABS: INR 2.7; Prothrombin Time 30.1 Seconds (9.4-12.1)
[2017-12-12] MEDS: Insulin LISPRO 300 UNITS/3 ML VIAL SQ SCH ×4 (07:37→20:38)
[2017-12-12] MEDS: Insulin DETEMIR 100 UNIT/ML X5UNITS SQ SCH ×2 (07:50→20:38)
[2017-12-12 10:33] LABS: Activated Partial Thrombo Time 135.7 Seconds (26.0-36.0)
[2017-12-12 10:41] LABS: Heparin anti-factor XA UFH 0.36 IU/mL (0.30-0.70)
[2017-12-12] MEDS ORDERED: Azithromycin 250 MG TABLET PO ONE (10:42)
--- NOTE | 2017-12-12 10:46 | Internal Med Progress Note ---
<Megan Powell - Last Filed: 12/12/17 13:55> Date of Encounter: 12/12/17 Time of Encounter: 10:40 - Assessment and plan (1) Acute deep vein thrombosis (DVT) Current Visit: Yes Status: Acute Assessment and plan: Acute bilateral DVT secondary to non compliance with anti-coagulation. She reportedly used to take coumadin but has not taken it in a year. She was to start xarelto but never took it and said she didn't know about it. She has an IVC filter placed 2011 due to DVTs in past. Venous Dopplers show acute venous thrombosis is present in the right distal iliac through tibial veins. Acute superficial venous thrombosis is present in the right greater and lesser saphenous veins. Acute deep venous thrombosis is present in the left common femoral vein. Acute superficial venous thrombosis is present in the left greater saphenous vein. Vascular recommends continued heparin drip with transition to oral anticoagulation INR 2.7 today plan: continue heparin drip with bridge to Coumadin may discharge tomorrow on oral anticoagulation with Coumadin pending therapeutic INR vascular consulted, recommendations appreciated monitor INR/ PTT monitor for bleeding Qualifiers: Qualified Code(s): I82.403 - Acute embolism and thrombosis of unspecified deep veins of lower extremity, bilateral (2) Bronchitis Current Visit: Yes Status: Acute Assessment and plan: Patient reports coughing with sputum production for a few days afebrile, WBC 6.7 On physical exam new diffuse wheezing and lungs bilaterally. Plan azithromycin day 1 duonebs supplemental oxygen as needed (3) Pulmonary nodule Current Visit: Yes Status: Acute Assessment and plan: CTA demonstrated bilateral hilar lymphadenopathy with widely scattered bilateral pulmonary nodules concerning for metastatic disease. No PE. Patient denies history of cancer, smoking. She reports that the pulmonary nodules are new information to her. She is not had a colonoscopy. Her mother had colon cancer diagnosed in her 60s. Pulmonology has been consulted, recommendations appreciated The daub color mixer examined the patient and prior CTA from 2013 that has similar imaging as her most recent CTA. He believes that the likelihood of pulmonary metastatic disease is less likely due to this similar comparison. He will follow-up with the patient in 4-6 weeks after discharge. The patient was made aware of these findings and the plan. 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 Last time she took Coumadin was 1 year ago (5) Hypokalemia Current Visit: Yes Status: Acute Assessment and plan: Resolved 3.9 today continue to monitor, supplement as needed (6) Diabetes Current Visit: Yes Status: Chronic Assessment and plan: Diabetes taking insulin Glucose on admission 496. glucose stable continue levemir 40BID continue low does insulin sliding scale continue Accu checks diabetic diet Qualifiers: Diabetes mellitus type: type 2 Diabetes mellitus complication status: with unspecified complications Diabetes mellitus penitentiary insulin use: with buttermaker continuous churn use Qualified Code(s): E11.8 - Type 2 diabetes mellitus with unspecified complications; Z79.4 - long-term (current) use of insulin; Z79.4 - termite control technician ( current) use of insulin; Z79.4 - long-term (current) use of insulin; Z79.4 - long-term (current) use of insulin (7) HTN (hypertension) Current Visit: Yes Status: Chronic Assessment and plan: BP stable. Continue home lisinopril Qualifiers: Hypertension type: essential hypertension Qualified Code(s): I10 - Essential (primary) hypertension (8) HLD (hyperlipidemia) Current Visit: Yes Status: Chronic Assessment and plan: Does not have elevated TG or LDL do not need to start statin Qualifiers: Hyperlipidemia type: pure hypercholesterolemia Qualified Code(s): E78.00 - Pure hypercholesterolemia, unspecified; E78.0 - Pure hypercholesterolemia (9) DVT prophylaxis Current Visit: Yes Status: Acute Assessment and plan: on heparin - Subjective Interval history: Alert and oriented times 3. Sitting up in bed comfortably. She was told at bedside that the pulmonary nodules will be followed up outpatient with the daub color mixer. She denied chest pain, shortness of breath, abdominal pain, leg pain, fever, chills. - Constitutional Vitals: Temp Pulse Resp BP Pulse Ox 97.6 F 93 16 96/63 96 12/12/17 10:26 12/12/17 10:26 12/12/17 10:26 12/12/17 10:26 12/12/17 10:26 General appearance: Present: cooperative, A&O X 3, pleasant, no acute distress, obese, answers questions appropriately Exam: Gen.: Vitals noted. No acute distress. AAOx3 HEENT: PERRL/EOMI, oropharynx clear, Normocephalic, atraumatic Neck: Supple. No adenopathy. Cardiac: RRR, no murmur, +S1/S2 Pulmonary: bilaterally wheezes no rales or rhonchi, equal chest expansion Abdomen: soft, nontender, Bowel sounds noted, no guarding MSK: no joint swelling noted Extremities: no BLE edema, nontender calf, no cyanosis or clubbing Psych: Appropriate mood and behavior Internal Medicine: Result - Labs CBC & Chem 7: 12/12/17 05:10 12/12/17 05:10 Labs: Short CBC 12/12/17 Range/Units 05:10 WBC 6.7 (4.3-11.1) K/mcL Hgb 9.7 L (11.5-15.4) g/dL Hct 29.8 L (35.3-44.9) % Plt Count 238 (140-400) K/mcL BMP 12/12/17 05:10 Sodium 134 L Potassium 3.9 Chloride 102 Carbon Dioxide 25 BUN 22 H Creatinine 0.71 Glucose 158 H Calcium 7.9 L - ABG Interpretation ABG results: PT/INR, D-dimer PT 30.1 Seconds (9.4-12.1) H D 12/12/17 05:10 - Impressions Impressions Chest CTA 12/11/17 08:30 IMPRESSION: 1. No acute pulmonary artery embolism. 2. Cardiomegaly with stable mediastinal and bilateral hilar lymphadenopathy. 3. Widely scattered stable bilateral pulmonary nodules suggesting benign origin given long-term stability. D/ / 12/11/2017 09:44:38 Hemal Elam MD / [facility] Interpreting Provider: Hemal Elam MD Consult Discharge Plan - Plan Referrals: Shelly De Leon CNP [Advanced Practice Nurse] - 12/24/17 12:30 pm Prescriptions: Rivaroxaban [Xarelto] 20 mg PO DAILY #30 tablet <Rosalio Aguillon T - Last Filed: 12/12/17 14:20> Date of Encounter: 12/12/17 - Assessment and plan (1) KIKE (acute kidney injury) Current Visit: Yes Status: Acute (2) Leukocytosis Current Visit: Yes Status: Acute (3) Acute deep vein thrombosis (DVT) Current Visit: Yes Status: Acute Qualifiers: Qualified Code(s): I82.403 - Acute embolism and thrombosis of unspecified deep veins of lower extremity, bilateral (4) Diabetes Current Visit: Yes Status: Chronic Qualifiers: Diabetes mellitus type: type 2 Diabetes mellitus complication status: with unspecified complications Diabetes mellitus buttermaker continuous churn insulin use: with penitentiary use Qualified Code(s): E11.8 - Type 2 diabetes mellitus with unspecified complications; Z79.4 - termite control technician (current) use of insulin; Z79.4 - long-term ( current) use of insulin; Z79.4 - long-term (current) use of insulin; Z79.4 - termite control technician (current) use of insulin (5) HLD (hyperlipidemia) Current Visit: Yes Status: Chronic Qualifiers: Hyperlipidemia type: pure hypercholesterolemia Qualified Code(s): E78.00 - Pure hypercholesterolemia, unspecified; E78.0 - Pure hypercholesterolemia (6) HTN (hypertension) Current Visit: Yes Status: Chronic Qualifiers: Hypertension type: essential hypertension Qualified Code(s): I10 - Essential (primary) hypertension (7) Anemia Current Visit: Yes Status: Acute Qualifiers: Anemia type: unspecified type Qualified Code(s): D64.9 - Anemia, unspecified (8) SIRS (systemic inflammatory response syndrome) Current Visit: Yes Status: Acute - Constitutional Vitals: Temp Pulse Resp BP Pulse Ox 97.6 F 93 16 96/63 98 12/12/17 10:26 12/12/17 10:26 12/12/17 11:46 12/12/17 10:26 12/12/17 11:46 Internal Medicine: Result - Labs CBC & Chem 7: 12/12/17 05:10 12/12/17 05:10 Labs: Short CBC 12/12/17 Range/Units 05:10 WBC 6.7 (4.3-11.1) K/mcL Hgb 9.7 L (11.5-15.4) g/dL Hct 29.8 L (35.3-44.9) % Plt Count 238 (140-400) K/mcL BMP 12/12/17 05:10 Sodium 134 L Potassium 3.9 Chloride 102 Carbon Dioxide 25 BUN 22 H Creatinine 0.71 Glucose 158 H Calcium 7.9 L - ABG Interpretation ABG results: PT/INR, D-dimer PT 30.1 Seconds (9.4-12.1) H D 12/12/17 05:10 - Impressions Impressions Chest CTA 12/11/17 08:30 IMPRESSION: 1. No acute pulmonary artery embolism. 2. Cardiomegaly with stable mediastinal and bilateral hilar lymphadenopathy. 3. Widely scattered stable bilateral pulmonary nodules suggesting benign origin given long-term stability. D/ / 12/11/2017 09:44:38 Hemal Elam MD / [facility] Interpreting Provider: Hemal Elam MD - Attending Attestation I examined this patient and my medical decision-making was reviewed with the Resident Physician. I agree with the documented findings, disposition and treatment plan as described except to the extent set forth below. Seen and evaluated at the bedside 57 F with uncontrolled DM, COPD, HTN, DVT in the past, now admitted for acute bilateral DVT Hospital stay complicated with KIKE which has resolved New onset fevers and sinus tachycardia CXR unremarkable CTA done to r/o PE shows multiple pulmonary nodules, pulm is consulted-no intervention is planned for now KIKE has improved, D/C IVF Anemia-Hb is donwtrending, patient is said to be having loose brown stools-Send for Occult blood Diarrhea-per patient. Check C.diff, if negative, will give imodium SIRS-Last fever episode is 12/11. Source unknown, blood cultures sent today 12/12. Urine analysis is negative, CXR with no infiltrates. Patient has no skin infections. Tachycardia is sinus. Continue to monitor Continue heparin,INR today is 2.7, hold coumadin tonight Rest as in resident physician's documentation
[2017-12-12] MEDS: Ipratropium/Albuterol Neb 3 ML IH SCH ×4 (11:42→23:05)
[2017-12-12] MEDS: traMADol 50 MG TABLET PO PRN (21:03)
[2017-12-13 03:12] LABS: Basophils % 0.4 %; Eosinophils # 0.1 K/mcL (0.0-0.6); Eosinophils % 2.1 %; Hematocrit 26.5 % (35.3-44.9); Hemoglobin 8.4 g/dL (11.5-15.4); Immature Granulocytes % 0.4 % (0-4); Lymphocytes # 1.1 K/mcL (0.6-4.6); Lymphocytes % 22.9 %; Mean Corpuscular HGB Conc 31.7 g/dL (31.6-35.5); Mean Corpuscular Hemoglobin 30.1 pg (28.0-33.3); Monocytes # 0.6 K/mcL (0.0-1.3); Monocytes % 11.8 %; Neutrophils # 2.9 K/mcL (1.6-8.9); Platelet Count 225 K/mcL (140-400); Red Blood Count 2.79 M/mcL (3.82-4.97); Red Cell Distribution Width 13.5 % (11.5-14.5); Segmented Neutrophils % 62.4 %
[2017-12-13 03:36] LABS: INR 2.5; Prothrombin Time 27.9 Seconds (9.4-12.1)
[2017-12-13] MEDS: Ipratropium/Albuterol Neb 3 ML IH SCH ×6 (03:54→23:55)
[2017-12-13] MEDS: Insulin LISPRO 300 UNITS/3 ML VIAL SQ SCH ×4 (07:56→21:06)
[2017-12-13] MEDS: Azithromycin 250 MG TABLET PO SCH (08:01)
[2017-12-13] MEDS: Insulin DETEMIR 100 UNIT/ML X5UNITS SQ SCH (08:01)
[2017-12-13] MEDS: Lisinopril 20 MG TABLET PO SCH (08:01)
--- NOTE | 2017-12-13 12:10 | Internal Med Progress Note ---
Date of Encounter: 12/13/17 Time of Encounter: 12:08 - Assessment and plan (1) KIKE (acute kidney injury) Current Visit: Yes Status: Resolved Assessment and plan: resolved with IVF (2) Leukocytosis Current Visit: Yes Status: Resolved Assessment and plan: resolved Qualifiers: Leukocytosis type: unspecified Qualified Code(s): D72.829 - Elevated white blood cell count, unspecified (3) Acute deep vein thrombosis (DVT) Current Visit: Yes Status: Acute Assessment and plan: Acute bilateral DVT secondary to non compliance with anti-coagulation. She reportedly used to take coumadin but has not taken it in a year. She was to start xarelto but never took it and said she didn't know about it. She has an IVC filter placed 2011 due to DVTs in past. Venous Dopplers show acute venous thrombosis is present in the right distal iliac through tibial veins. Acute superficial venous thrombosis is present in the right greater and lesser saphenous veins. Acute deep venous thrombosis is present in the left common femoral vein. Acute superficial venous thrombosis is present in the left greater saphenous vein. Vascular recommends continued heparin drip with transition to oral anticoagulation She now has 2 therapeutic INRs Discontinue heparin, continue coumadin, monitor INR and HB Qualifiers: DVT location: lower extremity Affected thrombotic vein of extremity: unspecified lower extremity proximal vein Laterality: bilateral Qualified Code(s): I82.4Y3 - Acute embolism and thrombosis of unspecified deep veins of proximal lower extremity, bilateral (4) Diabetes Current Visit: Yes Status: Chronic Assessment and plan: Diabetes taking insulin Glucose on admission 496. glucose stable FS slowly downtrending Decreased levemir to HS only Continue to monitor Qualifiers: Diabetes mellitus type: type 2 Diabetes mellitus complication status: with unspecified complications Diabetes mellitus assisted insulin use: with dedicated intermodal truck driver use Qualified Code(s): E11.8 - Type 2 diabetes mellitus with unspecified complications; Z79.4 - halfway (current) use of insulin; Z79.4 - halfway ( current) use of insulin; Z79.4 - buttermaker (current) use of insulin; Z79.4 - buttermaker (current) use of insulin (5) HLD (hyperlipidemia) Current Visit: Yes Status: Chronic Assessment and plan: Does not have elevated TG or LDL do not need to start statin Qualifiers: Hyperlipidemia type: pure hypercholesterolemia Qualified Code(s): E78.00 - Pure hypercholesterolemia, unspecified; E78.0 - Pure hypercholesterolemia (6) HTN (hypertension) Current Visit: Yes Status: Chronic Assessment and plan: BP stable. Continue home lisinopril Qualifiers: Hypertension type: essential hypertension Qualified Code(s): I10 - Essential (primary) hypertension (7) Anemia Current Visit: Yes Status: Acute Assessment and plan: Hb continues to trend low Admiting Hb was 11.6 Patient now has Hb 8.4 She is on anticoagulation for bilateral acute deep vein thrombosis. She has no hematuria, she has no ecchymosis,") Anemia is unexplained at this time. We will keep the patient will not continue to monitor hemoglobin, no indication for transfusion at this time. Qualifiers: Anemia type: unspecified type Qualified Code(s): D64.9 - Anemia, unspecified (8) SIRS (systemic inflammatory response syndrome) Current Visit: Yes Status: Acute Assessment and plan: Patient with fever, Tmax 102 UA is negative CXR and CTA shows no pneumonia Last fever episode 12/12 at 1900 Blood culture has been sent and is pending C.diff is negative Tachycardia is improving, will await blood cultures Continue to monitor It is likely her fever is due to her DVT (9) Bronchitis Current Visit: Yes Status: Acute Assessment and plan: Patient reports coughing with sputum production for a few days afebrile, COntinue duonebs and azithromycin-day 2 (10) Pulmonary nodules Current Visit: Yes Status: Acute Assessment and plan: PEr CT scan Pulmonology consulted, recommendations appreciated Follow up as out-patient - Subjective Interval history: Seen and evaluated at the bedside. The patient denies black stools, she denies hematuria, she denies any bruising. She has otherwise NRB. Managed for acute bilateral deep venous thrombosis and has been on heparin and Coumadin. She has a second therapeutic INR today. However, her hemoglobin continues to drop. Hemoglobin today is 8.4, admitting hemoglobin was 11.6 The patient denies chest pain, dizziness, she feels she is in the best of her health. Stool ocult blood is negative, C.diff is negative She reports her breathing and cough is better - Constitutional Vitals: Temp Pulse Resp BP Pulse Ox 99.3 F 98 18 93/50 93 12/13/17 11:23 12/13/17 11:23 12/13/17 11:23 12/13/17 11:23 12/13/17 11:23 General appearance: Present: cooperative, A&O X 3, pleasant, no acute distress, obese, answers questions appropriately - Head Head exam: Present: atraumatic, normocephalic - Eye Eye exam: Present: PERRL, conjuntiva pink, sclera anicteric Pupils: Present: PERRL - Neck Neck exam general surgery: Present: supple, trachea midline. Absent: lymphadenopathy - Respiratory Respiratory exam: Present: CTAB. Absent: accessory muscle use, rales, rhonchi, wheezes - Cardiovascular Cardiovascular exam: Present: RRR, +S1, +S2. Absent: diastolic murmur, gallop, rubs, systolic murmur - GI/Abdominal GI/Abdominal exam: Present: normal bowel sounds, soft, no peritoneal signs. Absent: distended, tenderness - Extremities Exam Extremities exam: Present: warm, radial pulses palpable and symmetrical. Absent : calf tenderness, cyanotic, pedal edema - Neurological Exam Neurological exam: Present: alert, CN II-XII intact, oriented X3, no focal deficits. Absent: pronater drift, facial droop, speech deficit - Skin Skin exam: Present: dry, intact Internal Medicine: Result - Labs CBC & Chem 7: 12/13/17 03:00 12/12/17 05:10 Labs: Short CBC 12/13/17 Range/Units 03:00 WBC 4.7 (4.3-11.1) K/mcL Hgb 8.4 L (11.5-15.4) g/dL Hct 26.5 L (35.3-44.9) % Plt Count 225 (140-400) K/mcL Neutrophils # 2.9 (1.6-8.9) K/mcL - ABG Interpretation ABG results: PT/INR, D-dimer PT 27.9 Seconds (9.4-12.1) H 12/13/17 03:00 Consult Discharge Plan - Plan Referrals: Shelly De Leon GYMNASTIC COACH [Advanced Practice Nurse] - 12/24/17 12:30 pm Prescriptions: Rivaroxaban [Xarelto] 20 mg PO DAILY #30 tablet
[2017-12-13] MEDS: Furosemide 40 MG TABLET PO SCH (17:27)
[2017-12-13] MEDS ORDERED: *HR* Warfarin 3 MG TABLET PO ONE (18:00)
[2017-12-13] MEDS: GuaiFENesin Liq 200 MG/10 ML UDC PO PRN (21:38)
[2017-12-13] MEDS: traMADol 50 MG TABLET PO PRN (22:17)
[2017-12-14] MEDS: Ipratropium/Albuterol Neb 3 ML IH SCH ×6 (03:22→23:40)
[2017-12-14] MEDS: traMADol 50 MG TABLET PO PRN ×2 (05:15→22:40)
[2017-12-14] MEDS: GuaiFENesin Liq 200 MG/10 ML UDC PO PRN (05:16)
[2017-12-14 05:22] LABS: INR 3.8; Prothrombin Time 42.1 Seconds (9.4-12.1)
[2017-12-14 06:13] LABS: Basophils % 0.4 %; Eosinophils # 0.1 K/mcL (0.0-0.6); Eosinophils % 2.9 %; Hematocrit 29.4 % (35.3-44.9); Hemoglobin 9.2 g/dL (11.5-15.4); Immature Granulocytes % 1.8 % (0-4); Lymphocytes # 1.1 K/mcL (0.6-4.6); Lymphocytes % 23.9 %; Mean Corpuscular HGB Conc 31.3 g/dL (31.6-35.5); Mean Corpuscular Hemoglobin 29.8 pg (28.0-33.3); Mean Corpuscular Volume 95.1 fL (83.0-100.0); Mean Platelet Volume 9.8 fL (9.4-12.4); Monocytes # 0.5 K/mcL (0.0-1.3); Monocytes % 10.7 %; Neutrophils # 2.7 K/mcL (1.6-8.9); Platelet Count 225 K/mcL (140-400); Red Blood Count 3.09 M/mcL (3.82-4.97); Red Cell Distribution Width 13.7 % (11.5-14.5); Segmented Neutrophils % 60.3 %
[2017-12-14 06:35] LABS: Platelet Estimate Normal (Normal)
[2017-12-14 06:36] LABS: Reactive Lymphocytes Present (Not Present)
[2017-12-14 06:42] LABS: BUN/Creatinine Ratio 30 (6-26); Blood Urea Nitrogen 20 mg/dL (6-20); Calcium 7.7 mg/dL (8.6-10.3); Carbon Dioxide 26 mEq/L (23-29); Chloride 102 mEq/L (98-107); Glucose 71 mg/dL (70-105); Osmolality,Calculated 281 (280-300); Potassium 3.5 mEq/L (3.5-5.1); Sodium 135 mEq/L (136-145); eGFR For African Americans > 60 (> 60); eGFR For Non-African Americans > 60 (> 60)
[2017-12-14] MEDS: Azithromycin 250 MG TABLET PO SCH (09:24)
[2017-12-14] MEDS: Lisinopril 20 MG TABLET PO SCH (09:24)
[2017-12-14] MEDS: Furosemide 40 MG TABLET PO SCH (09:25)
[2017-12-14] MEDS: Insulin LISPRO 300 UNITS/3 ML VIAL SQ SCH ×3 (09:26→20:34)
--- NOTE | 2017-12-14 13:52 | Internal Med Progress Note ---
Date of Encounter: 12/14/17 Time of Encounter: 10:00 - Assessment and plan (1) KIKE (acute kidney injury) Current Visit: Yes Status: Resolved Assessment and plan: resolved with IVF (2) Leukocytosis Current Visit: Yes Status: Resolved Assessment and plan: resolved Qualifiers: Leukocytosis type: unspecified Qualified Code(s): D72.829 - Elevated white blood cell count, unspecified (3) Acute deep vein thrombosis (DVT) Current Visit: Yes Status: Acute Assessment and plan: Acute bilateral DVT secondary to non compliance with anti-coagulation. She reportedly used to take coumadin but has not taken it in a year. She was to start xarelto but never took it and said she didn't know about it. She has an IVC filter placed 2011 due to DVTs in past. Venous Dopplers show acute venous thrombosis is present in the right distal iliac through tibial veins. Acute superficial venous thrombosis is present in the right greater and lesser saphenous veins. Acute deep venous thrombosis is present in the left common femoral vein. Acute superficial venous thrombosis is present in the left greater saphenous vein. Vascular recommends continued heparin drip with transition to oral anticoagulation She now has 2 therapeutic INRs INR today 3.8, hold coumadin, rpt INR a.m Qualifiers: DVT location: lower extremity Affected thrombotic vein of extremity: unspecified lower extremity proximal vein Laterality: bilateral Qualified Code(s): I82.4Y3 - Acute embolism and thrombosis of unspecified deep veins of proximal lower extremity, bilateral (4) Diabetes Current Visit: Yes Status: Chronic Assessment and plan: Diabetes taking insulin Glucose on admission 496. glucose stable FS slowly downtrending Decreased levemir to HS only Continue to monitor Qualifiers: Diabetes mellitus type: type 2 Diabetes mellitus complication status: with unspecified complications Diabetes mellitus half-way insulin use: with equipment operator intermodal yard use Qualified Code(s): E11.8 - Type 2 diabetes mellitus with unspecified complications; Z79.4 - exterminator termite (current) use of insulin; Z79.4 - exterminator termite ( current) use of insulin; Z79.4 - alf (current) use of insulin; Z79.4 - exterminator termite (current) use of insulin (5) HLD (hyperlipidemia) Current Visit: Yes Status: Chronic Assessment and plan: Does not have elevated TG or LDL do not need to start statin Qualifiers: Hyperlipidemia type: pure hypercholesterolemia Qualified Code(s): E78.00 - Pure hypercholesterolemia, unspecified; E78.0 - Pure hypercholesterolemia (6) HTN (hypertension) Current Visit: Yes Status: Chronic Assessment and plan: BP stable. Continue home lisinopril Qualifiers: Hypertension type: essential hypertension Qualified Code(s): I10 - Essential (primary) hypertension (7) Anemia Current Visit: Yes Status: Acute Assessment and plan: Hb continues to trend low Admiting Hb was 11.6 Patient now has Hb 8.4 She is on anticoagulation for bilateral acute deep vein thrombosis. She has no hematuria, she has no ecchymosis,") Anemia is unexplained at this time. We will continue to monitor hemoglobin, no indication for transfusion at this time. Qualifiers: Anemia type: unspecified type Qualified Code(s): D64.9 - Anemia, unspecified (8) SIRS (systemic inflammatory response syndrome) Current Visit: Yes Status: Resolved Assessment and plan: Patient with fever, Tmax 102, last fever episode 12/12 UA is negative CXR and CTA shows no pneumonia Last fever episode 12/12 at 1900 Blood culture has been sent -negative C.diff is negative Tachycardia has resolved Continue to monitor It is likely her fever is due to her DVT (9) Bronchitis Current Visit: Yes Status: Acute Assessment and plan: Patient reports coughing with sputum production for a few days afebrile, COntinue duonebs and azithromycin-day 3 (10) Pulmonary nodules Current Visit: Yes Status: Acute Assessment and plan: PEr CT scan Pulmonology consulted, recommendations appreciated Follow up as out-patient - Subjective Interval history: Seen and evaluated at the bedside. The patient denies black stools, she denies hematuria, she denies any bruising. She has otherwise NRB. Managed for acute bilateral deep venous thrombosis and has been on heparin and Coumadin. Heparin discontinued / INR therapeutic X2 INR today 3.8 HB has been stable around 8-9 now, no longer downtrending FOBT negative, C.diff negative Patient states cough is improving Blood culture is preliminary negative She is now afebrile since 101.8 Due to patient's known no-compliance I will be more comfortable discharging her home after setting up appointment in coumadin clinic [facility], check INR am Patient refuses to ambulate she states "I will do all my walking when I get home " - Constitutional Vitals: Temp Pulse Resp BP Pulse Ox 98.4 F 92 16 104/66 92 12/14/17 09:50 12/14/17 09:50 12/14/17 09:50 12/14/17 09:50 12/14/17 09:50 General appearance: Present: cooperative, A&O X 3, pleasant, no acute distress, obese, answers questions appropriately - Head Head exam: Present: atraumatic, normocephalic - Eye Eye exam: Present: PERRL, conjuntiva pink, sclera anicteric Pupils: Present: PERRL - Neck Neck exam general surgery: Present: supple, trachea midline. Absent: lymphadenopathy - Respiratory Respiratory exam: Present: CTAB. Absent: accessory muscle use, rales, rhonchi, wheezes - Cardiovascular Cardiovascular exam: Present: RRR, +S1, +S2. Absent: diastolic murmur, gallop, rubs, systolic murmur - GI/Abdominal GI/Abdominal exam: Present: normal bowel sounds, soft, no peritoneal signs. Absent: distended, tenderness - Extremities Exam Extremities exam: Present: warm, radial pulses palpable and symmetrical. Absent : calf tenderness, cyanotic, pedal edema - Neurological Exam Neurological exam: Present: alert, CN II-XII intact, oriented X3, no focal deficits. Absent: pronater drift, facial droop, speech deficit - Skin Skin exam: Present: dry, intact Internal Medicine: Result - Labs CBC & Chem 7: 12/14/17 04:59 12/14/17 04:59 Labs: Short CBC 12/14/17 Range/Units 04:59 WBC 4.5 (4.3-11.1) K/mcL Hgb 9.2 L (11.5-15.4) g/dL Hct 29.4 L (35.3-44.9) % Plt Count 225 (140-400) K/mcL Neutrophils # 2.7 (1.6-8.9) K/mcL BMP 12/14/17 04:59 Sodium 135 L Potassium 3.5 Chloride 102 Carbon Dioxide 26 BUN 20 Creatinine 0.66 Glucose 71 Calcium 7.7 L - ABG Interpretation ABG results: PT/INR, D-dimer PT 42.1 Seconds (9.4-12.1) H D 12/14/17 04:59 Consult Discharge Plan - Plan Referrals: Shelly De Leon CNP [Advanced Practice Nurse] - 12/24/17 12:30 pm Prescriptions: Rivaroxaban [Xarelto] 20 mg PO DAILY #30 tablet
[2017-12-14] MEDS ORDERED: Insulin DETEMIR 100 UNIT/ML X5UNITS SQ SCH (21:00)
[2017-12-15] MEDS: Acetaminophen 325 MG TABLET PO PRN (03:46)
[2017-12-15] MEDS: Ipratropium/Albuterol Neb 3 ML IH SCH ×3 (03:55→11:23)
[2017-12-15 04:03] LABS: INR 5.3; Prothrombin Time 59.3 Seconds (9.4-12.1)
[2017-12-15] MEDS: Insulin LISPRO 300 UNITS/3 ML VIAL SQ SCH ×2 (08:02→12:10)
[2017-12-15] MEDS: Lisinopril 20 MG TABLET PO SCH (08:05)
[2017-12-15] MEDS: Azithromycin 250 MG TABLET PO SCH (08:05)
[2017-12-15] MEDS: Furosemide 40 MG TABLET PO SCH (08:05)
[2017-12-15] MEDS: GuaiFENesin Liq 200 MG/10 ML UDC PO PRN (08:06)
--- NOTE | 2017-12-15 10:09 | Internal Med Progress Note ---
<Gorge Masters - Last Filed: 12/15/17 15:30> Date of Encounter: 12/15/17 Time of Encounter: 10:05 - Assessment and plan (1) Acute deep vein thrombosis (DVT) Status: Acute Assessment and plan: Presented with acute b/l DVT 2/2 non compliance w/ anti-coagulation. -Previously was on coumadin; has not taken in one year. -Was supposed to start xarelto but never took it and said she didn't know about it -She has an IVC filter placed 2011 due to DVTs in past. -Venous Dopplers show acute venous thrombosis present in R distal iliac through tibial veins -Acute superficial venous thrombosis is present in the R greater and lesser saphenous veins -Acute DVT is present in the L common femoral vein -Acute superficial venous thrombosis is present in theL greater saphenous vein. -Vascular recommended transition patient from heparin to coumadin. -INR today is 5.3, PT 59.3. -Currently on Coumadin. Qualifiers: DVT location: lower extremity Affected thrombotic vein of extremity: unspecified lower extremity proximal vein Laterality: bilateral Qualified Code(s): I82.4Y3 - Acute embolism and thrombosis of unspecified deep veins of proximal lower extremity, bilateral (2) SIRS (systemic inflammatory response syndrome) Status: Resolved Assessment and plan: Patient had developed fever, Tmax 102. Last fever episode 12/12. -Likely 2/2 DVT. -Temp this morning was 98.1. -UA is negative -CTA shows no PNA -Blood CX negative x2 -C.diff is negative -Tachycardia has resolved -Continue to monitor vital signs (3) KIKE (acute kidney injury) Status: Resolved Assessment and plan: KIKE resolved with IVF (4) Anemia Status: Acute Assessment and plan: Hb continues to trend low; Admiting Hb was 11.6; Last Hb wa s9.2 -Currently on anticoagulation for b/k acute DVT. No hematuria/ecchymosis,") -Anemia is unexplained at this time. Plan: -Continue to monitor hemoglobin, no indication for transfusion at this time. Qualifiers: Anemia type: unspecified type Qualified Code(s): D64.9 - Anemia, unspecified (5) Bronchitis Status: Acute Assessment and plan: Patient reports coughing with sputum production for a few days Patient is afebrile. Plan: -Zithromax 250 mg PO DAILY (day 4) -Duoneb 3ML IH q4 [facility] (6) Diabetes Status: Chronic Assessment and plan: Diabetes taking insulin -Glucose on admission 496. glucose stable -Levemir HS Qualifiers: Diabetes mellitus type: type 2 Diabetes mellitus complication status: with unspecified complications Diabetes mellitus fdc insulin use: with sugar reprocess operator head use Qualified Code(s): E11.8 - Type 2 diabetes mellitus with unspecified complications; Z79.4 - it investment/portfolio manager (current) use of insulin; Z79.4 - it investment/portfolio manager ( current) use of insulin; Z79.4 - it investment/portfolio manager (current) use of insulin; Z79.4 - senior living (current) use of insulin (7) HTN (hypertension) Status: Chronic Assessment and plan: BP this morning was 97/61. Plan: -Lisinopril 20 mg PO DAILY -Lopressor 12.5 mg PO BID Qualifiers: Hypertension type: essential hypertension Qualified Code(s): I10 - Essential (primary) hypertension (8) Leukocytosis Status: Resolved Assessment and plan: resolved Qualifiers: Leukocytosis type: unspecified Qualified Code(s): D72.829 - Elevated white blood cell count, unspecified (9) Pulmonary nodule Status: Acute Assessment and plan: Per CT scan -Per pulmonolgy, follow up in 4-6 w - Subjective Interval history: Patient was seen and examined at bedside this morning. Reports that she is feeling well today. Denies any pain in her legs. States that she is eager to be discharged. Patient is resting comfortably in bed and has no complaints at this time. - Constitutional Vitals: Temp Pulse Resp BP Pulse Ox 98.1 F 82 15 97/61 92 12/15/17 07:34 12/15/17 07:34 12/15/17 08:24 12/15/17 07:34 12/15/17 08:24 General appearance: Present: cooperative, A&O X 3, pleasant, no acute distress, obese, answers questions appropriately - Head Head exam: Present: atraumatic, normocephalic - Eye Eye exam: Present: PERRL, conjuntiva pink, sclera anicteric Pupils: Present: PERRL - Neck Neck exam general surgery: Present: supple, trachea midline. Absent: lymphadenopathy - Respiratory Respiratory exam: Present: CTAB. Absent: accessory muscle use, rales, rhonchi, wheezes - Cardiovascular Cardiovascular exam: Present: RRR, +S1, +S2. Absent: diastolic murmur, gallop, rubs, systolic murmur - Extremities Exam Extremities exam: Present: pedal edema. Absent: calf tenderness, cyanotic - Skin Skin exam: Present: dry, intact Internal Medicine: Result - Labs CBC & Chem 7: 12/14/17 04:59 12/14/17 04:59 - ABG Interpretation ABG results: PT/INR, D-dimer PT 59.3 Seconds (9.4-12.1) H* 12/15/17 03:43 Consult Discharge Plan - Plan Referrals: Shelly De Leon [facility] [Advanced Practice Nurse] - 12/24/17 12:30 pm Prescriptions: Rivaroxaban [Xarelto] 20 mg PO DAILY #30 tablet <Rosalio Aguillon - Last Filed: 12/15/17 16:02> Date of Encounter: 12/15/17 - Assessment and plan (1) KIKE (acute kidney injury) Status: Resolved (2) Leukocytosis Status: Resolved Qualifiers: Leukocytosis type: unspecified Qualified Code(s): D72.829 - Elevated white blood cell count, unspecified (3) Acute deep vein thrombosis (DVT) Status: Acute Qualifiers: DVT location: lower extremity Affected thrombotic vein of extremity: unspecified lower extremity proximal vein Laterality: bilateral Qualified Code(s): I82.4Y3 - Acute embolism and thrombosis of unspecified deep veins of proximal lower extremity, bilateral (4) Diabetes Status: Chronic Qualifiers: Diabetes mellitus type: type 2 Diabetes mellitus complication status: with unspecified complications Diabetes mellitus fdc insulin use: with fdc use Qualified Code(s): E11.8 - Type 2 diabetes mellitus with unspecified complications; Z79.4 - senior living (current) use of insulin; Z79.4 - it investment/portfolio manager ( current) use of insulin; Z79.4 - senior living (current) use of insulin; Z79.4 - it investment/portfolio manager (current) use of insulin (5) HLD (hyperlipidemia) Status: Chronic Qualifiers: Hyperlipidemia type: pure hypercholesterolemia Qualified Code(s): E78.00 - Pure hypercholesterolemia, unspecified; E78.0 - Pure hypercholesterolemia (6) HTN (hypertension) Status: Chronic Qualifiers: Hypertension type: essential hypertension Qualified Code(s): I10 - Essential (primary) hypertension (7) Anemia Status: Acute Qualifiers: Anemia type: unspecified type Qualified Code(s): D64.9 - Anemia, unspecified (8) SIRS (systemic inflammatory response syndrome) Status: Resolved (9) Bronchitis Status: Acute (10) Pulmonary nodules Status: Acute - Constitutional Vitals: Temp Pulse Resp BP Pulse Ox 97.5 F L 76 15 96/54 93 12/15/17 11:29 12/15/17 11:29 12/15/17 11:29 12/15/17 11:29 12/15/17 11:29 Internal Medicine: Result - Labs CBC & Chem 7: 12/14/17 04:59 12/14/17 04:59 - ABG Interpretation ABG results: PT/INR, D-dimer PT 59.3 Seconds (9.4-12.1) H* 12/15/17 03:43 - Attending Attestation seen wants to leave AMA despite being educated about possible risks of bleeding INR 5.8, no signs of bleeding If patient refuses to stay, ensure coumadin INR clinic follow up
[2017-12-15 11:31] VITALS: BP 96/54
--- NOTE | 2017-12-16 07:09 | Discharge Summary ---
<Gorge Masters - Last Filed: 12/16/17 07:16> Date of Encounter: 12/16/17 Time of Encounter: 09:00 - Discharge Diagnosis (1) Acute deep vein thrombosis (DVT) Priority: Primary Status: Acute Qualifiers: DVT location: lower extremity Affected thrombotic vein of extremity: unspecified lower extremity proximal vein Laterality: bilateral Qualified Code(s): I82.4Y3 - Acute embolism and thrombosis of unspecified deep veins of proximal lower extremity, bilateral (2) SIRS (systemic inflammatory response syndrome) Priority: Secondary Status: Resolved (3) KIKE (acute kidney injury) Priority: Secondary Status: Resolved (4) Anemia Priority: Secondary Status: Acute Qualifiers: Anemia type: unspecified type Qualified Code(s): D64.9 - Anemia, unspecified (5) Bronchitis Priority: Secondary Status: Acute (6) Diabetes Priority: Secondary Status: Chronic Qualifiers: Diabetes mellitus type: type 2 Diabetes mellitus complication status: with unspecified complications Diabetes mellitus intermodal truck driver insulin use: with correction use Qualified Code(s): E11.8 - Type 2 diabetes mellitus with unspecified complications; Z79.4 - correction (current) use of insulin; Z79.4 - correction ( current) use of insulin; Z79.4 - buttermilk drier operator (current) use of insulin; Z79.4 - correction (current) use of insulin (7) HTN (hypertension) Priority: Secondary Status: Chronic Qualifiers: Hypertension type: essential hypertension Qualified Code(s): I10 - Essential (primary) hypertension (8) Leukocytosis Priority: Secondary Status: Resolved Qualifiers: Leukocytosis type: unspecified Qualified Code(s): D72.829 - Elevated white blood cell count, unspecified (9) Pulmonary nodule Priority: Secondary Status: Acute - Discharge Medications Prescriptions: Rivaroxaban [Xarelto] 20 mg PO DAILY #30 tablet Home Medications: Furosemide [Lasix] 40 mg PO DAILY 06/14/15 [History] Insulin Glargine [Lantus] 40 unit SQ BID 06/03/16 [History] Rivaroxaban [Xarelto] 20 mg PO DAILY 06/03/16 [History] Albuterol Sulfate [Albuterol Inhaler] 2 puff IH Q6HR PRN #1 hfa.aer.ad 04/09/17 [Rx] Tramadol HCl [Ultram] 50 mg PO QID PRN 4 Days #10 tab 12/05/17 [Rx] Ibuprofen [Ibuprofen] 800 mg PO BID 12/08/17 [History] Lisinopril [Zestril] 20 mg PO DAILY 12/08/17 [History] Rivaroxaban [Xarelto] 20 mg PO DAILY #30 tablet 12/09/17 [Rx] Allergies/Adverse Reactions: 3 Allergy/AdvReac Type Severity Reaction Status Date / Time No Known Allergies Allergy Verified 12/08/17 13:44 Date of admission: 12/08/17 19:40 Primary care physician: Marquita Ornelas Consults: 12/10/17 10:02 Consult to Invasive Line Access Team [CONS] Routine Reason for Consult: limited access Line Type: EPIV Consult to Invasive Line Access Team [CONS] Stat Reason for Consult: limited access Line Type: EPIV 12/11/17 14:45 Consult to Pulmonology [CONS] Routine Consulting Provider: [facility] [place] Reason for Consult: CTA demonstrating bilateral hilar lymphadenopathy with widely scattered bilateral pulmonary knowledge rules concerning for metastatic disease Call Completed: Yes Discharging clinician: Gorge Masters Anticipated date of discharge: 12/15/17 - Patient Status Disposition: Left Against Medical Advice Condition: Fair - Discharge Instructions Follow Up With: Shelly De Leon CNP [Advanced Practice Nurse] - 12/24/17 12:30 pm Hospital course: Ms. Emerson is a 57 year old female with medical history of arthritis, asthma, COPD, CVA in 2002, DVT in left leg in 1989, diabetes with insulin control, GERD , HLD, HTN, and osteoporosis presented to [facility] with chief complaint of pain and swelling in her right lower extremity. Swelling was progressive and worsening over the course of 2 days. Patient reported chronic swelling in lower extremity when she has clot. Reports difficulty w/ambulation and pain in RLE. Denies current anticoagulation. Pt. denied SOB or dyspnea, recent illness, fever, chills, nausea, vomiting, chest pain, palpitations, headache, changes in vision, cough, chest congestion, abdominal pain, diarrhea, constipation, dizziness, lightheadedness, pre-syncope, or syncope. Upon admission to the hospital, patient's pulse was 100 bpm; all other vital signs were within normal limits. Venous Dopplers demonstrated acute venous thrombosis is present in the right distal iliac through tibial veins. Acute superficial venous thrombosis is present in the right greater and lesser saphenous veins. Acute deep venous thrombosis is present in the left common femoral vein. Acute superficial venous thrombosis is present in the left greater saphenous vein. Endovascular was consulted; per their recommendations, patient was not a candidate for thrombectomy. She was started on heparin. According to patient's records, patient was supposed to be on coumadin; had not been taking for a full year. She was also recently prescribed xarelto, which she has not been taking either. During her stay, Patient reported having a coughing with sputum production for a few days. She was afebrile at that time. She was given zithromax 250 mg PO DAILY for 4 days and duonebs. Pulmonology was consulted on 12/11/17 for pulmonary nodules that were incidentally discovered on CT scan. Per their recommendations, patient should follow up in 4-6 weeks in the outpatient setting. Heparin was stopped; patient was started on Coumadin. On 12/15/17, Patients INR was noted to be increasing despite stopping the coumadin. INR was 5.3, PT 59.3. Patient's hemoglobin was also noted to be low while in the hospital at 9.2. Plan was to keep patient one more day for observation and to make sure she was not having any acute blood loss. When patient was seen and examined, she reported feeling much better. She denied having any pain in her legs. She reported that she was anxious to leave. After being informed that she would need to stay another day, patient decided to leave AMA. She was informed about the risks of bleeding, but still said that she wanted to leave. After patient left, appointment was set up at the coumadin clinic in the outpatient setting. - Time Spent with Patient Total time spent providing and/or coordinating discharge services: - Constitutional Vitals: Temp Pulse Resp BP Pulse Ox 97.5 F L 76 15 96/54 93 12/15/17 11:29 12/15/17 11:29 12/15/17 11:29 12/15/17 11:29 12/15/17 11:29 General appearance: Present: cooperative, A&O X 3, pleasant, no acute distress, obese, answers questions appropriately - Head Head exam: Present: atraumatic, normocephalic - ENT ENT exam: Present: mucous membranes moist, normal exam - Neck Neck exam general surgery: Present: full ROM, normal inspection. Absent: lymphadenopathy - Cardiovascular Cardiovascular exam: Present: RRR, +S1, +S2. Absent: diastolic murmur, gallop, rubs, systolic murmur - Extremities Exam Extremities exam: Present: warm, radial pulses palpable and symmetrical. Absent : calf tenderness, cyanotic, pedal edema - Skin Skin exam: Present: dry, intact <Rosalio Aguillon T - Last Filed: 12/16/17 07:31> Date of Encounter: 12/16/17 - Discharge Diagnosis (1) KIKE (acute kidney injury) Status: Resolved (2) Leukocytosis Status: Resolved Qualifiers: Leukocytosis type: unspecified Qualified Code(s): D72.829 - Elevated white blood cell count, unspecified (3) Acute deep vein thrombosis (DVT) Status: Acute Qualifiers: DVT location: lower extremity Affected thrombotic vein of extremity: unspecified lower extremity proximal vein Laterality: bilateral Qualified Code(s): I82.4Y3 - Acute embolism and thrombosis of unspecified deep veins of proximal lower extremity, bilateral (4) Diabetes Status: Chronic Qualifiers: Diabetes mellitus type: type 2 Diabetes mellitus complication status: with unspecified complications Diabetes mellitus intermodal truck driver insulin use: with intermodal truck driver use Qualified Code(s): E11.8 - Type 2 diabetes mellitus with unspecified complications; Z79.4 - buttermilk drier operator (current) use of insulin; Z79.4 - buttermilk drier operator ( current) use of insulin; Z79.4 - correction (current) use of insulin; Z79.4 - buttermilk drier operator (current) use of insulin (5) HLD (hyperlipidemia) Status: Chronic Qualifiers: Hyperlipidemia type: pure hypercholesterolemia Qualified Code(s): E78.00 - Pure hypercholesterolemia, unspecified; E78.0 - Pure hypercholesterolemia (6) HTN (hypertension) Status: Chronic Qualifiers: Hypertension type: essential hypertension Qualified Code(s): I10 - Essential (primary) hypertension (7) Anemia Status: Acute Qualifiers: Anemia type: unspecified type Qualified Code(s): D64.9 - Anemia, unspecified (8) SIRS (systemic inflammatory response syndrome) Status: Resolved (9) Bronchitis Status: Acute (10) Pulmonary nodules Status: Acute Date of admission: 12/08/17 19:40 Primary care physician: Marquita Ornelas Consults: 12/10/17 10:02 Consult to Invasive Line Access Team [CONS] Routine Reason for Consult: limited access Line Type: EPIV Consult to Invasive Line Access Team [CONS] Stat Reason for Consult: limited access Line Type: EPIV 12/11/17 14:45 Consult to Pulmonology [CONS] Routine Consulting Provider: [facility] [place] Reason for Consult: CTA demonstrating bilateral hilar lymphadenopathy with widely scattered bilateral pulmonary knowledge rules concerning for metastatic disease Call Completed: Yes Hospital course: Ms. Emerson is a 57 year old female - Time Spent with Patient Total time spent providing and/or coordinating discharge services: - Constitutional Vitals: Temp Pulse Resp BP Pulse Ox 97.5 F L 76 15 96/54 93 12/15/17 11:29 12/15/17 11:29 12/15/17 11:29 12/15/17 11:29 12/15/17 11:29 - Attending Attestation seen decided to leave GLEN We have set up an appointment at [facility] and will call her to inform her
== END 2017-12-15 13:44 | disposition left against medical advice (07) | DRG 197 ==
LOC: 3ANU 13:28 → EMEROO 13:28 → 3ANU 18:34 → SUATTDRO 19:40
PROVIDERS: ADMIT Nurse Practitioner Family; ATTEND Internal Medicine